=== PATIENT | female | born 1935 | race Caucasian/White ===

== ENCOUNTER → 2017-02-06 | Outpatient (CLI) | payer OTHER, MEDICARE ==
[~2017-02-06] MED LIST: ACET-1256 PO; ASPI81TA28 PO; ATOR-24 PO; AZITTAB PO; B-CO1CAP17 PO; CYAN500S5 PO; GABA1CAP5 PO; IPRASOL4 INH; LPR25 PO; PRLSR20 PO; PSEU60TA80 PO
== END | disposition home or self-care (01) ==
LOC: C.LABSPEC 15:27
PROVIDERS: ATTEND Podiatrist
DX: Z01.89 Encounter for other specified special examinations (principal)

== ENCOUNTER → 2017-05-08 | Outpatient (CLI) | payer OTHER, MEDICARE ==
--- NOTE | 2017-05-09 07:41 | MAMMOGRAPHY REPORT ---
BILATERAL DIGITAL SCREENING MAMMOGRAM WITH CAD: 05/08/2017 CLINICAL HISTORY: Routine screening. Patient has no complaints. TECHNIQUE: Bilateral CC, MLO, repeat left CC and left XCCL views were obtained. Current study was al so evaluated with a Computer Aided Detection (CAD) system. COMPARISON: Comparison is made to exams dated: 04/26/2016 mammogram, 04/23/2015 mammogram, 04/22/2014 mamm ogram - [facility], 08/14/2012 mammogram, 08/11/2011 mammogram, and 08/09/2010 mamm ogram. BREAST COMPOSITION: The tissue of both breasts is heterogeneously dense, which may obscure small mas ses. FINDINGS: There are stable postsurgical changes the left breast. There are scattered bilateral benig n rim calcifications The parenchymal pattern is similar to prior mammograms. No developing mass, arc hitectural distortion or cluster of suspicious microcalcifications is seen in either breast. IMPRESSION: ACR BI-RADS CATEGORY 2: BENIGN There is no mammographic evidence of malignancy. A 1 year screening mammogram is recommended. The pa tient will receive written notification of the results. Approximately 10% of breast cancers are not detected with mammography. A negative mammographic report should not delay biopsy if a clinically suggestive mass is present. Aviva Ratliff M.D. ay/:05/08/2017 15:59:31 [employer] Advisor: Sara ALFONSO(Alee)(Umberto)([place]), [facility] letter sent: Normal 1/2 BI-RADS Code: ACR BI-RADS Category 2: Benign
== END | disposition home or self-care (01) ==
LOC: C.MAMM 08:36
PROVIDERS: ATTEND Internal Medicine
DX: Z12.31 Encounter for screening mammogram for malignant neoplasm of breast (principal); Z85.3 Personal history of malignant neoplasm of breast

== ENCOUNTER 2017-05-26 11:05 | Emergency (ER) | payer OTHER, MEDICARE ==
[~2017-05-26] VITALS: Ht 167.6 cm; Wt 74.0 kg
[~2017-05-26 11:05] MED LIST changes: -AZITTAB PO; -CYAN500S5 PO; -IPRASOL4 INH; -PSEU60TA80 PO
[2017-05-26 11:11] VITALS: TEMP 38.2; Ht 167.6 cm; Wt 74.0 kg
[2017-05-26] MEDS ORDERED: CYAN500S5 PO (11:20)
[2017-05-26] MEDS ORDERED: IPRASOL4 INH (11:20)
[2017-05-26] MEDS ORDERED: PSEU60TA80 PO (11:21)
[2017-05-26 11:30] VITALS: O2SAT 99
[2017-05-26 11:59] LABS: POINT OF CARE TROPONIN I < 0.030 ng/ml (0-0.045)
[2017-05-26 12:02] LABS: HEMATOCRIT 38.7 % (37-47); MEAN CELL VOLUME 85.4 fL (80-100); MEAN CORPUSCULAR HEMOGLOBIN 28.7 pg (25-34); MEAN CORPUSCULAR HGB CONC 33.6 g/dl (32-36); MEAN PLATELET VOLUME 11.3 fL (7.4-10.4); PLATELET COUNT 185 K/uL (130-400); RED BLOOD COUNT 4.53 M/uL (4.2-5.4); WHITE BLOOD COUNT 5.22 K/uL (4.8-10.8)
--- NOTE | 2017-05-26 12:12 | DIAGNOSTIC IMAGING REPORT ---
CHEST ONE VIEW PORTABLE CLINICAL HISTORY: chest pain dyspnea COMPARISON STUDY: 10/21/2015 FINDINGS: Prior median sternotomy. No evidence for cardiac enlargement. Diaphragms smooth. Lungs are clear. IMPRESSION: No acute process The above report was generated using voice recognition software. It may contain grammatical, syntax or spelling errors. Electronically signed by: Antonio Ribeiro M.D. 05/26/2017 12:11 PM Dictated Date/Time: 05/26/2017 12:10 PM
[2017-05-26 12:13] LABS: PROTHROMBIN TIME (PATIENT) 10.5 SECONDS (9.0-12.0)
[2017-05-26 12:21] LABS: BUN/CREATININE RATIO 18.4 (10-20); CALCIUM 9.4 mg/dl (8.5-10.1); CREATININE 1.4 mg/dl (0.60-1.20); POTASSIUM 4.4 mmol/L (3.5-5.1)
[2017-05-26] MEDS ORDERED: AZITHROMYCIN 250 MG TAB PO STA (12:21)
[2017-05-26 12:25] LABS: ALB/GLOB RATIO 1.2 (0.9-2); CKMB/CK RATIO 1.3 (0-3.0)
[2017-05-26] MEDS ORDERED: AZITTAB PO (12:30)
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
[2017-05-26 12:33] VITALS: BP 129/68; PULSE 57; O2SAT 96
== END 2017-05-26 12:43 | disposition home or self-care (01) ==
LOC: C.EDB 11:06 → C.EDC 12:43
DX: J40 Bronchitis, not specified as acute or chronic (principal); R09.1 Pleurisy; I48.91 Unspecified atrial fibrillation; I35.0 Nonrheumatic aortic (valve) stenosis; Z85.3 Personal history of malignant neoplasm of breast; Z79.82 Long term (current) use of aspirin; Z79.899 Other long term (current) drug therapy; Z88.1 Allergy status to other antibiotic agents; Z80.9 Family history of malignant neoplasm, unspecified; Z82.3 Family history of stroke

== ENCOUNTER → 2017-06-16 | Outpatient (CLI) | payer OTHER, MEDICARE ==
[~2017-06-16] MED LIST changes: -ACET-1256 PO; -B-CO1CAP17 PO; +CYAN500S5 PO; +IPRASOL4 INH; +PSEU60TA80 PO
[2017-06-16 13:18] LABS: BASO % 0.3 %; BASO ABS # 0.02 K/uL (0-0.2); COMPLETE YES; EOS % 4.6 %; HEMATOCRIT 39.9 % (37-47); IG% 0.5 %; LYMPH % 28.1 %; LYMPH ABS # 1.77 K/uL (1.2-3.4); MEAN CELL VOLUME 86.4 fL (80-100); MEAN CORPUSCULAR HEMOGLOBIN 28.4 pg (25-34); MEAN CORPUSCULAR HGB CONC 32.8 g/dl (32-36); MEAN PLATELET VOLUME 11.1 fL (7.4-10.4); MONO % 9.7 %; NEUT % 56.8 %; PLATELET COUNT 195 K/uL (130-400); RED BLOOD COUNT 4.62 M/uL (4.2-5.4); WHITE BLOOD COUNT 6.29 K/uL (4.8-10.8)
[2017-06-16 14:18] LABS: LYME DISEASE AB IGG NEG (NEG); LYME DISEASE AB IGM NEG (NEG)
== END | disposition home or self-care (01) ==
LOC: C.LAB1850 11:53
PROVIDERS: ATTEND Dermatology
DX: M19.90 Unspecified osteoarthritis, unspecified site (principal); R53.83 Other fatigue

== ENCOUNTER → 2017-07-05 | Outpatient (CLI) | payer OTHER, MEDICARE ==
--- NOTE | 2017-07-05 11:36 | DIAGNOSTIC IMAGING REPORT ---
EXAMINATION: RENAL ULTRASOUND CLINICAL HISTORY: Acute renal failure COMPARISON STUDY: 08/22/2013 FINDINGS: The right kidney measures 9.4 cm. The left kidney measures 9.1 cm. There is no evidence of hydronephrosis. There are no renal masses. No bladder masses are visualized. The left ureteral jet was not visualized. IMPRESSION : No renal masses identified. No evidence of hydronephrosis. Symmetric renal size and cortical thickness. Electronically signed by: Ryan Bauer M.D. 07/05/2017 11:34 AM Dictated Date/Time: 07/05/2017 11:33 AM
[2017-07-05 11:56] LABS: HEMATOCRIT 40.3 % (37-47); MEAN CELL VOLUME 87.6 fL (80-100); MEAN CORPUSCULAR HEMOGLOBIN 28.5 pg (25-34); MEAN CORPUSCULAR HGB CONC 32.5 g/dl (32-36); MEAN PLATELET VOLUME 10.9 fL (7.4-10.4); PLATELET COUNT 236 K/uL (130-400); WHITE BLOOD COUNT 4.41 K/uL (4.8-10.8)
[2017-07-05 11:59] LABS: BLOOD UREA NITROGEN 20 mg/dl (7-18); BUN/CREATININE RATIO 16.7 (10-20); CALCIUM 9.9 mg/dl (8.5-10.1); CARBON DIOXIDE 27 mmol/L (21-32); CHLORIDE 108 mmol/L (98-107); GLUCOSE 89 mg/dl (70-99); POTASSIUM 4.3 mmol/L (3.5-5.1); SODIUM 140 mmol/L (136-145)
[2017-07-05 12:00] LABS: PHOSPHORUS 3.9 mg/dl (2.5-4.9)
== END | disposition home or self-care (01) ==
LOC: C.ULTR 10:41
PROVIDERS: ATTEND Internal Medicine
DX: N17.9 Acute kidney failure, unspecified (principal); N18.3 Chronic kidney disease, stage 3 (moderate)

== ENCOUNTER → 2017-09-12 | Outpatient (CLI) | payer OTHER, MEDICARE ==
--- NOTE | 2017-09-12 12:51 | DIAGNOSTIC IMAGING REPORT ---
CHEST 2 VIEWS ROUTINE CLINICAL HISTORY: COUGH SHORTNESS OF BREATH. WHEEZING. COMPARISON STUDY: 05/26/2017 FINDINGS: The cardiac and mediastinal contours remain stable. There are postsurgical changes of midline sternotomy. There are surgical clips in the left axillary region. There is no failure. There is no focal pulmonary consolidation. There are no pleural effusions. There are postsurgical changes of aortic valve replacement. There is mild interstitial thickening similar to the preceding study.[ IMPRESSION: No active disease in the chest. Electronically signed by: Ryan Bauer M.D. 09/12/2017 12:50 PM Dictated Date/Time: 09/12/2017 12:49 PM
== END | disposition home or self-care (01) ==
LOC: C.RAD 12:19
PROVIDERS: ATTEND Internal Medicine
DX: R05 Cough (principal)

== ENCOUNTER → 2017-12-04 | Outpatient (CLI) | payer OTHER, MEDICARE ==
[~2017-12-04] MED LIST changes: +GABA-1220 PO; -GABA1CAP5 PO
--- NOTE | 2017-12-04 13:55 | DIAGNOSTIC IMAGING REPORT ---
CHEST 2 VIEWS ROUTINE HISTORY: COUGH COMPARISON: Chest 09/12/2017. FINDINGS: Mild emphysema. Mild interstitial thickening at the lung bases which remains unchanged. No new focal lung consolidations to suggest pneumonia. The heart is stable in size. There are post sternotomy changes. Surgical clips within the left axilla. No pneumothorax. No pleural effusions. There is an aortic valve prosthesis. IMPRESSION: No significant change compared to the prior study. No acute process. Electronically signed by: Jose Maria Lim M.D. 12/04/2017 1:54 PM Dictated Date/Time: 12/04/2017 1:53 PM
== END | disposition home or self-care (01) ==
LOC: C.RAD 12:13
PROVIDERS: ATTEND Internal Medicine
DX: R05 Cough (principal)

== ENCOUNTER → 2017-12-11 | Outpatient (CLI) | payer OTHER, MEDICARE | END | disposition home or self-care (01) | LOC: C.LAB1850 08:45 | PROVIDERS: ATTEND Internal Medicine Cardiovascular Disease | DX: E78.5 Hyperlipidemia, unspecified (principal) ==

== ENCOUNTER → 2017-12-12 | Outpatient (CLI) | payer OTHER, MEDICARE ==
[2017-12-12 12:01] LABS: BASO % 0.1 %; BASO ABS # 0.01 K/uL (0-0.2); EOS % 0.3 %; EOS ABS # 0.03 K/uL (0-0.5); HEMATOCRIT 39.3 % (37-47); HEMOGLOBIN 13.5 g/dL (12.0-16.0); LYMPH % 14.9 %; LYMPH ABS # 1.28 K/uL (1.2-3.4); MEAN CELL VOLUME 85.6 fL (80-100); MEAN CORPUSCULAR HEMOGLOBIN 29.4 pg (25-34); MEAN CORPUSCULAR HGB CONC 34.4 g/dl (32-36); MEAN PLATELET VOLUME 10.7 fL (7.4-10.4); MONO % 7.1 %; MONO ABS # 0.61 K/uL (0.11-0.59); NEUT % 76.4 %; NEUT ABS # 6.55 K/uL (1.4-6.5); PLATELET COUNT 314 K/uL (130-400); RED CELL DISTRIBUTION WIDTH CV 14.2 % (11.5-14.5); WHITE BLOOD COUNT 8.58 K/uL (4.8-10.8)
[2017-12-12 12:07] LABS: INR 0.9 (0.9-1.1); PTT PATIENT 22.1 SECONDS (21.0-31.0)
[2017-12-12 12:24] LABS: BLOOD UREA NITROGEN 22 mg/dl (7-18); CALCIUM 9.8 mg/dl (8.5-10.1); CARBON DIOXIDE 24 mmol/L (21-32); CREATININE 1.18 mg/dl (0.60-1.20); GLUCOSE 96 mg/dl (70-99); SODIUM 139 mmol/L (136-145)
== END | disposition home or self-care (01) ==
LOC: C.LAB1850 10:34
PROVIDERS: ATTEND Physician Assistant
DX: R05 Cough (principal)

== ENCOUNTER → 2017-12-18 | Day surgery (SDC) | payer OTHER, MEDICARE ==
[~2017-12-18] VITALS: Ht 167.6 cm; Wt 69.0 kg
[~2017-12-18] MED LIST changes: +FENTANYL CITRATE INJ 50 MCG/1 ML 2 ML VIAL IV ONE; +LIDOCAINE 4% INH SOLN 4 ML BTL TOP ONE; +LIDOCAINE HCL 2% LOCAL 50ML VIAL INSTIL ONE; +LIDOCAINE VISCOUS 2% 100ML TOP ONE; +MIDAZOLAM HCL 5 MG/ML 1 ML VIAL IV ONE
--- NOTE | 2017-12-18 05:20 | History and Physical ---
History & Physical Date of Service Dec 18, 2017. History & Physical 82-year-old female presents today for bronchoscopic evaluation chronic productive cough: Prior records were reviewed. PMHx includes: Aortic stenosis s/p bioprosthetic valve (2012), paroxysmal atrial fibrillation following surgery, reflux esophagitis, hyperlipidemia, osteoarthritis, splenic artery aneurysm, mild persistent asthma, migraine headache, lung nodules (stable [id number]), peripheral neuropathy, and breast cancer (s/p XRT). She is a life-long non- smoker with h/o second hand exposure. Patient history notable for several decades of chronic dry cough without dyspnea or wheeze. She has been quite active and fit throughout her adulthood. 10/21/2015-10/24/2015 she was hospitalized with bronchitis and acute renal failure. CT Chest: multiple pulmonary nodules (stable from 2012) and bronchiectasis. She was initially seen 12/2015. Bronchoscopy 02/12/2016: + adherent secretions on the right mainstem, muco-viscous/muco-purulent secretions and numerous mucous plugging and impaction bilaterally. Cultures: normal palmer, negative fungal and AFB. Cytology from irregular mucosa: benign. She did very well post-procedure with improved energy. Second bronchoscopy completed 08/2016 for recurrent symptoms again notable for lavage of significant muco-purulent thick secretions with post-procedural improvement. In general the patient has been doing her very well until the fall of 2016 when she developed symptoms of pharyngitis. She was seen by her primary care physician and told her uvula was enlarged. She was prescribed an antibiotic ( unknown) at that time with significant post treatment symptomatic improvement. Unfortunately associated cough returned at which time she was treated with multiple courses of prednisone. Cough is described as wet in nature associated with chest congestion and mild shortness of breath without wheeze or chest pain. She was prescribed multiple rounds of prednisone each with temporary palliation in her symptoms. Unfortunately, cough returned at which point approximately 2 weeks ago she was prescribed azithromycin without improvement. She reports CXR completed - told this was negative. Prednisone re-started currently on day 9. Active Problems 1. Allergic asthma, mild persistent, uncomplicated 2. Breast cancer status post XRT 3. Aortic stenosis 4. Arthritis 5. hypertension 6. Bradycardia 7. Breast cancer 8. Bronchiectasis 9. Paroxysmal atrial fibrillation status post by prosthetic aortic valve replacement 2012 10. Cholecystitis 11. Conductive hearing loss 12. Constipation 13. Diverticulosis 14. Dizziness 15. Dysfunction of right eustachian tube 16. Esophageal reflux 17. Gross hematuria 18. Heart disease 19. Heartburn 20. Hypercalcemia 21. Hyperlipidemia 22. Idiopathic neuropathy 23. Lung anomaly 24. Migraine headache 25. Osteoarthritis 26. Peripheral neuropathy 27. Postmenopausal atrophic vaginitis 28. Rotator cuff tendonitis 29. Spinal stenosis 30. Status post aortic valve replacement with bioprosthetic valve 31. History of nephrolithiasis Surgical History 1. History of Biopsy Breast Open 2. History of Cholecystectomy Laparoscopic 3. Biopsy prosthetic aortic valve replacement Family History 1. No pertinent family history Social History Denied: History of Being A Social Drinker Marital History - Currently Never smoker Occupation: Retired Current Meds 1. Sterile Saline Solution; USE ONE 3ML VIAL OF 0.9% SALINE VIA NEBULIZER 1-2 x daily 2. PredniSONE 10 MG Oral Tablet; 4 tablets daily for 2 days, 3 tablets daily for 2 days, 2 3. Fluticasone Propionate 50 MCG/ACT Nasal Suspension; INSTILL 1 SQUIRT Twice daily 4. Omeprazole 20 MG Oral Capsule Delayed Release; TAKE 1 CAPSULE DAILY 5. Gabapentin 400 MG Oral Capsule; TAKE 1 CAPSULE 4 TIMES DAILY 6. Metoprolol Succinate ER 25 MG Oral Tablet Extended Release 24 Hour; TAKE 1/2 7. Aspirin 81 MG TABS; TAKE 1 TABLET DAILY 8. Atorvastatin Calcium 40 MG Oral Tablet; TAKE 1 TABLET DAILY; 9. DuoNeb 0.5-2.5 (3) MG/3ML SOLN; USE 1 UNIT DOSE IN NEBULIZER EVERY 4 HOURS PRN 10. Fish Oil 500 MG Oral Capsule; 11. Vitamin B Complex CAPS; 12. Vitamin D TABS; Allergies 1. Amoxicillin TABS 2. Augmentin TABS 3. Iodine Tincture SWAB 4. Shellfish Immunizations Influenza --- Series1: 28-Aug-2015; Series2: 18-Aug-2016 PCV --- Series1: 24-Jun-2015 Td/DT --- Series1: 02-Apr-2013 Vitals Vital Signs Recorded: [id number] 09:25AM Height: 5 ft 6 in Weight: 156 lb 4 oz BMI Calculated: 25.22 BSA Calculated: 1.8 Blood Pressure: 106 / 70, RUE, Sitting Respiration: 20 O2 Saturation: 99, RA Heart Rate: 78 Temperature: 98.3 F Constitutional: Well developed, well nourished elderly female. No acute distress. Head: + facial symmetry. Eyes: EOMi, PERRLA, no conjunctival injection. Corrective lenses Mouth: No erythema, exudate, or post nasal gtt Neck: Trachea midline. No adenopathy or masses Respiratory: Non-labored respirations. Intermittent harsh cough on exam. Scattered mobile rales. No wheeze or rhonchi. No clubbing or cyanosis. Cardiovascular: RRR, soft early systolic murmur. +2 radial pulses. <1s capillary refill. Integumentary: no rashes, or ecchymosis MSK/Extremities: Moving and developed symmetrically. No peripheral edema Neurologic: A&O, data recall in-tact. Appropriate affect
[2017-12-18 06:56] VITALS: BP 134/67; PULSE 59; TEMP 36.6; O2SAT 98; Ht 167.6 cm; Wt 69.0 kg
--- NOTE | 2017-12-18 08:06 | History & Physical Bridge Note ---
H&P Re-Evaluation Bridge Note: I have examined the patient, reviewed the History & Physical and in the interval since the performance of the History & Physical I have noted the following changes of clinical significance: No changes noted
--- NOTE | 2017-12-18 08:07 | Pre Sedation Assessment ---
Pre Sedation Assessment General Date of Sedation: Dec 18, 2017. Vital Signs Past 12 Hours Date Time Temp Pulse Resp B/P (MAP) Pulse Ox O2 Delivery O2 Flow Rate FiO2 12/18/17 06:56 36.6 59 18 134/67 (89) 98 Room Air Review Cardiovascular: regular rate, rhythm, no edema, no gallop, no JVD, no murmur, normal peripheral pulses Lungs: chest non-tender, + rhonchi Pre-Sedation Airway Assessment Smoking Status: Never Smoker Hx of Sleep Apnea: Yes Hx of difficult intubation: No Short Thick Neck: No Thyro-mental Distance: > 3 Finger Breadths Oral Cavity: WNL Mallampati Classification: Class II ASA Classification: Class II NPO Status Date of Last Intake of Fluids: Dec 17, 2017 Time of Last Intake of Fluids: 2229 Date of Last Intake of Solids: Dec 17, 2017 Time of Last Intake of Solids: 1900 Procedure Planning Contraindications for Sedation: None Current Medications Reviewed: Yes Notes The planned sedation has been discussed with the patient. Informed Consent was obtained. I have identified the patient, determined the appropriateness of sedation and have assessed the patient immediately prior to the procedure. All medicine(s) and interventions are by my order.
--- NOTE | 2017-12-18 08:54 | Bronchoscopy Procedure Note ---
Bronchoscopy Procedure Note Procedure: Bronchoscopy, conscious sedation, bronchial lavage right lower lobe Consent: Obtained through the patient placed into the chart Pre-procedural diagnosis: Chronic cough Post-procedural diagnosis: Chronic cough Start time: 835 End time: 846 Total time: 11 minutes Analgesia: 2% liquid lidocaine: Via nebulizer 4% gel lidocaine: Via right naris 2% liquid lidocaine: Via bronchoscopy Sedation: Versed IV: 2 mg Fentanyl IV: 50 g Procedure: The Olympus video bronchoscope was used for this procedure and passed down through the right naris Right naris/posterior naris/posterior oropharynx: Minimal nasal crepitus appreciated along the nasal septum Glottis: Anatomically within normal limits, minimal mucous plugs Vocal cords: Proper abduction and abduction, anatomically within normal limits Subglottis/trachea/Yasemin: Anatomically within normal limits Right bronchial tree: Right mainstem bronchus: Anatomically within normal limits Right upper lobe: Anatomically within normal limits Bronchus intermedius: Anatomically within normal limits Right middle lobe: Anatomically within normal limits Right lower lobe: Anatomically within normal limits Findings: Minimal mucus secretions in the right lower lobe Left bronchial tree: Left mainstem bronchus: Anatomically within normal limits Left upper lobe: Anatomically within normal limits Lingula: Anatomically within normal limits Left lower lobe: Anatomically within normal limits Findings: Minimal mucus secretions in the left lower lobe Bronchial alveolar lavage: Right lower lobe EBL: None Complications: None Follow-up: ASU
--- NOTE | 2017-12-18 08:56 | Discharge Instructions ---
Discharge Instructions Date of Service Dec 18, 2017. Admission Reason for Admission: Bronchiectasis, Chronic Bronchitis Discharge Discharge Diagnosis / Problem: Chronic cough Discharge Goals Goal(s): Improve function, Diagnostic testing Activity Recommendations Activity Limitations: resume your previous activity Lifting Limitations: none Exercise/Sports Limitations: rest today Shower/Bathe: no limitations Driving or Machine Use: resume 1 day after discharge . Instructions / Follow-Up Instructions / Follow-Up Follow[facility]up in the [facility] with provider Rosalee Almaguer Current Hospital Diet Patient's current hospital diet: Discharge Diet Recommended Diet: Regular Diet Procedures Procedures Performed: Bronchoscopy, conscious sedation and bronchial lavage of the right lower lobe Pending Studies Studies pending at discharge: no Laboratory Results Lipid Panel Test 12/11/17 08:48 Range/Units Triglycerides Level 169 H 0-150 mg/dl Cholesterol Level 165 0-200 mg/dl HDL Cholesterol 71 mg/dl Cholesterol/HDL Ratio 2.3 LDL Cholesterol, Calculated 60 mg/dl Medical Emergencies . Who to Call and When: Medical Emergencies: If at any time you feel your situation is an emergency, please call 911 immediately. . Non-Emergent Contact Non-Emergency issues call your: Painter Supervisor Call Non-Emergent contact if: you have a fever, temperature is above 101 . . "Provider Documentation" section prepared by Garett Dorado. . VTE Core Measure Inpt VTE Proph given/why not?: Treatment not indicated
[2017-12-18 09:05] VITALS: BP 134/67; PULSE 54; TEMP 36.7; O2SAT 99
[2017-12-18 09:35] VITALS: BP 104/55; PULSE 52; TEMP 36.4; O2SAT 99
[2017-12-18 10:03] VITALS: BP 124/51; PULSE 54; TEMP 36.7; O2SAT 99
[2017-12-18 10:34] VITALS: BP 123/57; PULSE 52; O2SAT 98
[2017-12-18 11:05] VITALS: BP 126/62; PULSE 67; O2SAT 98
== END | disposition home or self-care (01) ==
LOC: C.ACU 06:29
PROVIDERS: ATTEND Internal Medicine Critical Care Medicine
DX: R05 Cough (principal); I35.0 Nonrheumatic aortic (valve) stenosis; I48.0 Paroxysmal atrial fibrillation; K21.0 Gastro-esophageal reflux disease with esophagitis; E78.5 Hyperlipidemia, unspecified; M19.90 Unspecified osteoarthritis, unspecified site; J45.909 Unspecified asthma, uncomplicated; F17.200 Nicotine dependence, unspecified, uncomplicated; Z85.3 Personal history of malignant neoplasm of breast; I10 Essential (primary) hypertension; H90.8 Mixed conductive and sensorineural hearing loss, unspecified; I51.9 Heart disease, unspecified; Z98.890 Other specified postprocedural states; Z79.82 Long term (current) use of aspirin; Z79.899 Other long term (current) drug therapy; Z88.1 Allergy status to other antibiotic agents; Z88.8 Allergy status to other drugs, medicaments and biological substances; Z91.013 Allergy to seafood

== ENCOUNTER → 2018-05-10 | Outpatient (CLI) | payer OTHER, MEDICARE ==
[~2018-05-10] MED LIST changes: -FENTANYL CITRATE INJ 50 MCG/1 ML 2 ML VIAL IV ONE; +IPRA-64 INH; -IPRASOL4 INH; -LIDOCAINE 4% INH SOLN 4 ML BTL TOP ONE; -LIDOCAINE HCL 2% LOCAL 50ML VIAL INSTIL ONE; -LIDOCAINE VISCOUS 2% 100ML TOP ONE; -MIDAZOLAM HCL 5 MG/ML 1 ML VIAL IV ONE
--- NOTE | 2018-05-10 16:06 | MAMMOGRAPHY REPORT ---
BILATERAL DIGITAL SCREENING MAMMOGRAM TOMOSYNTHESIS WITH CAD: 05/10/2018 CLINICAL HISTORY: Routine screening. Patient has no complaints. TECHNIQUE: The study was acquired using full field digital technology and interpreted from soft copy. Breast tomosynthesis in addition to standard 2D mammography was performed. Current study was also ev aluated with a Computer Aided Detection (CAD) system. COMPARISON: Comparison is made to exams dated: 05/08/2017 mammogram, 04/26/2016 mammogram, 04/23/2015 steve mogram, 04/22/2014 mammogram - [facility], 08/14/2012 mammogram, and 08/11/2011 mammo gram. BREAST COMPOSITION: The tissue of both breasts is heterogeneously dense, which may obscure small mass es. FINDINGS: No suspicious masses, calcifications, or areas of architectural distortion are noted in either breast . There has been no significant interval change compared to prior exams. There are stable postsurgic al changes in the left 12:00 posterior breast and left axillary region. Scattered bilateral benign-a ppearing calcifications are stable. IMPRESSION: There is no mammographic evidence of malignancy. A 1 year screening mammogram is recommended.( 019) The patient will receive written notification of the results. Some breast cancers are not detected with mammography. A negative mammographic report should not genny y biopsy if a clinically suggestive mass is present. Fidelia Hoover M.D. ah/:05/10/2018 15:06:44 Loading Machine Tool Setter: Amber Stewart, RT(R)(M), [facility] letter sent: Normal 1/2 BI-RADS Code: ACR BI-RADS Category 2: Benign
== END | disposition home or self-care (01) ==
LOC: C.MAMM 08:37
PROVIDERS: ATTEND Internal Medicine
DX: Z12.31 Encounter for screening mammogram for malignant neoplasm of breast (principal)

== ENCOUNTER 2023-12-07 09:41 | Observation (INO) ==
--- NOTE | 2023-11-08 12:32 | PAT Medication Instructions ---
Medication Instructions Date of Service November 08, 2023 Home Medications Medication Instructions Recorded duloxetine 60 mg capsule,delayed 60 mg PO HS 90 days #90 caps 01/02/23 release metoprolol succinate 25 mg 12.5 mg (1/2 x 25 mg) PO QAM #90 10/24/23 tablet,extended release 24 hr tabs atorvastatin 40 mg tablet 40 mg PO QAM cyanocobalamin (vitamin B-12) 500 mcg tablet (Vitamin B-12) 500 mcg PO QAM aspirin 81 mg tablet,delayed release 81 mg PO QPM cholecalciferol (vitamin D3) 25 mcg (1,000 unit) capsule 1,000 units PO QAM omega-3 fatty acids 500 mg capsule 1,200 mg PO QAM gabapentin 400 mg capsule 800 mg PO BID magnesium oxide 500 mg capsule 500 mg PO QAM omeprazole 20 mg capsule,delayed release 20 mg PO QAM duloxetine 60 mg capsule,delayed release 60 mg PO HS metoprolol succinate 25 mg tablet,extended release 24 hr 12.5 mg (1/2 x 25 mg) PO QAM cetirizine 10 mg tablet (Zyrtec) 10 mg PO QPM meloxicam 7.5 mg tablet 7.5 mg PO QAM montelukast 10 mg tablet (Singulair) 10 mg PO QPM vitamins A,C,U-gvrv-bgnccb 2,148 mcg-113 mg-45 mg-17.4 mg tablet (Eye Multivitamin) 1 tab PO QAM ASK your surgeon for instructions meloxicam 7.5 mg tablet 7.5 mg PO QAM ASK your prescriber and surgeon aspirin 81 mg tablet,delayed release 81 mg PO QPM STOP taking 2 weeks before surgery (or as soon as possible if surgery is within 2 weeks) omega-3 fatty acids 500 mg capsule 1,200 mg PO QAM vitamins A,C,F-miut-yprbcx 2,148 mcg-113 mg-45 mg-17.4 mg tablet (Eye Multivitamin) 1 tab PO QAM DO NOT take the morning of surgery cyanocobalamin (vitamin B-12) 500 mcg tablet (Vitamin B-12) 500 mcg PO QAM cholecalciferol (vitamin D3) 25 mcg (1,000 unit) capsule 1,000 units PO QAM magnesium oxide 500 mg capsule 500 mg PO QAM Take morning of surgery With a small sip of water, OTHERWISE NOTHING TO EAT OR DRINK AFTER MIDNIGHT: atorvastatin 40 mg tablet 40 mg PO QAM gabapentin 400 mg capsule 800 mg PO BID omeprazole 20 mg capsule,delayed release 20 mg PO QAM metoprolol succinate 25 mg tablet,extended release 24 hr 12.5 mg (1/2 x 25 mg) PO QAM Take evening before surgery gabapentin 400 mg capsule 800 mg PO BID duloxetine 60 mg capsule,delayed release 60 mg PO HS cetirizine 10 mg tablet (Zyrtec) 10 mg PO QPM montelukast 10 mg tablet (Singulair) 10 mg PO QPM Other Notes If you have any questions please call us at [phone] or [phone] or [phone] or [phone]
--- NOTE | 2023-11-14 15:54 | Anesthesiology Consultation ---
Date of Service November 14, 2023 Assessment & Plan (1) Encounter for pre-operative examination: - left arm restriction. - cardiology office visit 06/28/23 [place]: "...acceptable cardiac risk for hip replacement surgery without further testing...stable from cardiovascular standpoint. She demonstrates excellent control of her blood pressure and cholesterol values. She was commended on her exercise program. We will reassess her bioprosthetic aortic valve prior to our next visit..." - Outpatient joint assessment: Patient is currently scheduled for inpatient pathway. If re-evaluated and patient/surgeon requests outpatient pathway, patient is not recommended candidate for outpatient joint program from anesthesia standpoint. Chart Review Chart Review: Acceptable Risk for Surgery and Patient seen in Pre Admission Testing Teaching & Discussion Pre-Anesthesia Teaching/Discussion Notes: Instructed NPO after midnight before surgery, except medications with 15 cc of water. Medication instructions provided according to the PAT guidelines. History Surgery Operation Date: 12/07/23 07:00 Proposed Procedures p Right Total Hip Arthroplasty - Patrick Reyes MD Height/Weight Height: 5 ft 6 in Weight: 73.1 kg Allergies Allergy/AdvReac Type Severity Reaction Status Date / Time pregabalin [From Lyrica] AdvReac Severe hot flashes Verified 11/07/23 10:35 prednisone AdvReac Intermediate Worsening Verified 11/07/23 10:35 Neuropathy Medications Home Medications Medication Instructions Recorded Confirmed Last Taken atorvastatin 40 mg tablet 40 mg PO QAM #30 tabs 08/20/19 11/07/23 07/21/22 09:00 cyanocobalamin (vitamin B-12) 500 500 mcg PO QAM 03/08/20 11/07/23 07/21/22 09:00 mcg tablet (Vitamin B-12) aspirin 81 mg tablet,delayed 81 mg PO QPM 06/02/20 11/07/23 3 Weeks Ago release ~07/01/22 cholecalciferol (vitamin D3) 25 1,000 units PO QAM 06/02/20 11/07/23 07/21/22 09:00 mcg (1,000 unit) capsule omega-3 fatty acids 500 mg capsule 1,200 mg PO QAM 06/02/20 11/07/23 07/21/22 09:00 gabapentin 400 mg capsule 800 mg PO BID 05/04/21 11/07/23 07/22/22 05:30 magnesium oxide 500 mg capsule 500 mg PO QAM 12/17/21 11/07/23 07/21/22 09:00 omeprazole 20 mg capsule,delayed 20 mg PO QAM 10/31/22 11/07/23 Unknown release duloxetine 60 mg capsule,delayed 60 mg PO HS 90 days #90 caps 01/02/23 11/07/23 Unknown release metoprolol succinate 25 mg 12.5 mg (1/2 x 25 mg) PO QAM #90 10/24/23 11/07/23 Unknown tablet,extended release 24 hr tabs cetirizine 10 mg tablet (Zyrtec) 10 mg PO QPM 11/07/23 11/07/23 Unknown meloxicam 7.5 mg tablet 7.5 mg PO QAM 11/07/23 11/07/23 Unknown montelukast 10 mg tablet 10 mg PO QPM 11/07/23 11/07/23 Unknown (Singulair) vitamins A,C,S-awjb-ozzvhp 2,148 1 tab PO QAM 11/07/23 11/07/23 Unknown mcg-113 mg-45 mg-17.4 mg tablet (Eye Multivitamin) Past Medical History Medical History (Updated 11/15/23 @ 08:25 by Araceli Carreon PA-C) Aortic valvular disorder Bioprosthetic AVR, 2012 ([facility] [place]) Atrial fibrillation Post-op AVR (2012) [facility] Benign essential hypertension controlled, stable per pt Chronic bronchitis inhaler prn-pt and daughter deny that patient has rescue inhaler Chronic kidney disease (CKD) Baseline creatinine 1.3 per chart review Cough variant asthma pt denies needing rescue inhaler GERD without esophagitis controlled, stable per pt History of basal cell carcinoma right eyebrow s/p excision History of left breast cancer 2009, radiation and lumpectomy Hyperlipidemia Limb alert care status left arm restriction Multiple pulmonary nodules determined by computed tomography of lung Peripheral neuropathy feet and legs Patient denies h/o stroke, seizures, heart attack, heart failure, DM, blood clots/DVTs or blood transfusions. Exercise / Class Metabolic Activity III < 4 Walking/Shop/Light housework (denies chest discomfort or shortness of breath with usual activities) Past Family History Family History Father Lung cancer Other No family history of adverse response to anesthesia Past Surgical History Surgical History H/O endoscopic sinus surgery Image guided b/l ESS and septoplasty (07/22/2022): Grade view 1, Cameron#2, ETT 7.0 at [facility] History of anesthesia reaction "Slow to wake" Pt reports needing "the smallest dose possible"/has strong response to anesthesia History of arthroscopy of left knee History of arthroscopy of right knee History of basal cell carcinoma (BCC) excision History of section History of laparoscopic cholecystectomy History of left breast biopsy malignant History of left cataract extraction History of right cataract extraction History of shoulder surgery frozen shoulder-pt denies surgical intervention History of wisdom tooth extraction Hx of colonoscopy S/P breast lumpectomy left with lymph node biopsy Status post aortic valve replacement with bioprosthetic valve Bioprosthetic AVR, 2012 ([facility] [place]) Status post trigger finger release R/L hands Past Anesthesia History No Family Hx of Anesthesia Complications and Other ("needs minimal amount of anesthesia due to slowness waking up") History of PONV No Hx of PONV and Hx of Motion Sickness Social History Smoking Status: Never smoker Do You Dip or Chew Tobacco: No Hx Alcohol Use: Yes alcohol intake frequency: holidays/special occasions only Hx Substance Use: No substance use type: does not use Review of Systems Patient denies chest pain, shortness of breath, dyspnea on exertion, snoring, witnessed apneas, fever, chills, cough, wheezing, or palpitations. Physical Exam Vital Signs Vitals BP 91/51 automatic right arm reading; 92/52 manual right arm (pt states this is her usual BP range, denies dizziness/lightheadedness-states she feels fine to day) P 65 TEMP 98.1 SP02 95% on RA RESP 17 Physical Patient resting comfortably in chair in no acute distress, alert and oriented, responding appropriately throughout visit Full cervical extension range of motion without pain TMD 3.5 finger breadths Mallampati Score 2 Dentition: intact, denies chipped or loose teeth, caps/crowns, implants or bridges Lungs: normal respiratory effort. Good air movement, clear throughout to auscultation, no adventitious breath sounds Cardiac: regular rate and rhythm, no murmurs noted Carotid arteries: negative bruit bilat Lab Results Anesthesia Preop Results Results Anesthesia Widget: WBC 6.79 K/ul (4.8-10.8) 11/14/23 Hgb 12.7 g/dl (12.0-16.0) 11/14/23 Hct 39.3 % (37.0-47.0) 11/14/23 Plt 231 K/uL (130-400) 11/14/23 Na 138 mmol/L (136-145) 11/14/23 K 4.4 mmol/L (3.5-5.1) 11/14/23 Cl 103 mmol/L (98-107) 11/14/23 CO2 29 mmol/L (21-32) 11/14/23 BUN 24 mg/dl (6-23) H 11/14/23 Creat 1.29 mg/dl (0.6-1.2) H 11/14/23 Glucose Level 82 mg/dl (70-99(Fasting)) 11/14/23 PT 10.7 Seconds (9.0-12.0) 11/14/23 PTT 28 Seconds (21-31) 11/14/23 INR 1.0 (0.9-1.1) 11/14/23 Urine Color Yellow 11/14/23 Urine Appearance Clear (Clear) 11/14/23 Urine pH 6.5 (4.5-7.5) 11/14/23 Urine Specific [place] 1.013 (1.000-1.030) 11/14/23 Urine Protein Negative (Negative) 11/14/23 Urine Glucose (UA) Negative (Negative) 11/14/23 Urine Ketones Negative (Negative) 11/14/23 Urine Blood Negative (Negative) 11/14/23 Urine Nitrite Negative (Negative) 11/14/23 Urine Bilirubin Negative (Negative) 11/14/23 Urine Urobilinogen Negative (Negative) 11/14/23 Urine Leukocyte Esterase Trace (Negative) H 11/14/23 Urine WBC (Auto) 1-5 /hpf (0-5) 11/14/23 Urine RBC (Auto) 5-10 /hpf (0-4) H 11/14/23 Urine Hyaline Casts (Auto) 0 /lpf (0-5) 11/14/23 Urine Epithelial Cells (Auto) 0-5 /lpf (0-5) 11/14/23 Urine Bacteria (Auto) Negative (Negative) 11/14/23 Blood Type O Positive 11/14/23 Antibody Screen NEGATIVE 11/14/23 Testing Electrocardiogram Date: 11/14/23 Sinus rhythm with 1st degree AV block, rate 66 bpm Echocardiogram Date: 12/27/22 EF 55-60% Normal LV wall motion Mild cLVH Bioprosthetic aortic valve is well seated and functions normally; gradient is normal No significant valvular pathology Other Testing Chest CT 01/04/23 1. Stable subcentimeter pulmonary nodules. These are likely benign. 2. No new or suspicious pulmonary nodules identified. 3. Additional findings as described above.
--- NOTE | 2023-11-15 16:14 | History & Physical Report ---
Date of Service November 15, 2023 Assessment & Plan (1) Osteoarthritis of right hip: Plan: PRE-OP Diagnosis: Right hip osteoarthritis Planned Procedure: Right total hip arthroplasty Plan: Patient is scheduled to undergo this procedure at the [facility] with a 23-hour observation admission with Dr. Reyes on November. Risks and complications of the procedure such as: Infection, bleeding, pain, scarring, nerve blood vessel damage, weakness, wound problems, stiffness, incomplete relief of symptoms, hardware failure, hardware loosening, wear, fracture, tendon or ligament injury, dislocation, leg length inequality, blood clots, Embolism, heart attack, stroke and were explained to the patient at her visit today. Informed consent to perform the procedure was obtained. Patient also understands risks of proceeding with surgical intervention during the COVID-19 pandemic. Currently she is asymptomatic and has not been in contact with anyone positive for the virus recently. Patient has an appointment to meet with anesthesia later today and while there will obtain CBC with differential, complete metabolic panel, PT/INR, blood type and screen, urinalysis, urine culture and sensitivity, EKG, and a nasal culture for MRSA. Patient will also need preoperative medical clearance from their senior category manager and primary care provider. Patient states that she plans on doing in-home physical therapy for the first 1 to 2 weeks postoperatively with [facility]. Patient states that she will most likely elect to do outpatient physical therapy at our PT clinic with Pat. Patient will need a walker, raised toilet seat, shower chair and a hip kit. During today's visit we reviewed the total hip packet as well as precautions. We discussed discharge planning from the hospital. I provided paperwork to obtain a handicap placard for their vehicle. We discussed lectures offered by [facility] in regards to joint replacement surgery via Zoom. I advised the patient that upon discharge from hospital we will prescribe a narcotic pain medication and anti- inflammatory. Patient will also be on an 81 mg aspirin twice daily for blood clot prevention. Patient will be scheduled for 2-week postoperative follow-up visit with myself on December 20. At that visit we will Provide the patient with an order for outpatient physical therapy and rehab protocol. This chart was completed utilizing [employer] voice recognition software. Grammatical errors, random word insertions, pronoun errors, and in complete sentences are an occasional consequence of the system. Any questions or con cerns about the content, text, or information contained within the body of this dictation should be addressed directly to the physician for clarification. Plan PRE-OP Diagnosis: Right hip osteoarthritis Planned Procedure: Right total hip arthroplasty History of Present Illness Chief Complaint: Chief Complaint: Right hip pain Primary Care Provider: Baldomero Holder MD History of Present Illness (including history relevant to procedure): This 88-year-old female presents the clinic today for preoperative history and physical. Patient states she has been having significant right hip pain for the past 6 months but over the past month it has increased. She localizes most of her pain over the lateral aspect of her hip. She states that it seems to be worse in the morning when she wakes up or down steps. She has recently began using a cane as an assistive device. Patient has had ultrasound-guided corticosteroid injections with only mild pain relief. She was on Mobic and experienced significant relief initially but states it is ineffective now. She states that she does experience some episodes of the leg feeling very weak and giving out. She is electing to proceed with surgical invention at this time due to failed conservative management of her hip arthritis. Review Of Systems: A 12 point review of systems is performed and is unremarkable except for those things stated in the HPI and past medical history. Past Medical History: Problems: Arthritis of right hip Seborrheic keratoses Changing skin lesion History of basal cell carcinoma of skin Actinic keratoses Hiatal hernia Neuropathic pain Gastric reflux Cancer Heart burn Heart murmur Dry eyes . Breast cancer with radiation treatment High cholesterol Procedure History Procedure Procedure Date Comments Shave biopsy and cauterization of skin 11/02/2023 Gallbladder 2010 - removed Left Rotator Cuff Repair 2008 Colonoscopy 2006 Left Knee Surgery 2005 Right Knee Surgery 2005 Left Breast Lumpectomy 2003 Biopsy of breast Heart valve replacement 2002 2003 Allergies and Sensitivities: Adhesive bandage Current Home Meds: (Last Updated 11/14 16:15) DULoxetine (DULoxetine 20 mg oral delayed release capsule) 60mg acetaminophen (Tylenol 500 mg oral tablet) 2 tab PO q6h albuterol (Albuterol (Eqv-ProAir HFA) 90 mcg/inh inhalation aerosol) aspirin atorvastatin (atorvastatin 40 mg oral tablet) cyanocobalamin (Vitamin B12) diclofenac (diclofenac sodium 75 mg oral delayed release tablet) 75 mg PO bid PRN: as needed for pain with food gabapentin (gabapentin 400 mg oral capsule) 400 mg PO bid magnesium aspartate meloxicam metoprolol (metoprolol tartrate 25 mg oral tablet) 12.5 mg PO bid omega-3 polyunsaturated fatty acids (Fish Oil oral capsule) omeprazole (omeprazole 20 mg oral delayed release tablet) 20 mg PO Daily polyethylene glycol 3350 (MiraLax) pravastatin (pravastatin 20 mg oral tablet) 20 mg PO Daily senna 2 tab PO q24h thiamine (Vitamin B1) PO Daily Initial Wt: 11/14 72.4 kg 159 lb Allergies Allergy/AdvReac Type Severity Reaction Status Date / Time pregabalin [From Lyrica] AdvReac Severe hot flashes Verified 11/07/23 10:35 prednisone AdvReac Intermediate Worsening Verified 11/07/23 10:35 Neuropathy Home Medications Medication Instructions Recorded Confirmed Type atorvastatin 40 mg tablet 40 mg PO QAM #30 tabs 08/20/19 11/07/23 History cyanocobalamin (vitamin B-12) 500 500 mcg PO QAM 03/08/20 11/07/23 History mcg tablet (Vitamin B-12) aspirin 81 mg tablet,delayed 81 mg PO QPM 06/02/20 11/07/23 History release cholecalciferol (vitamin D3) 25 1,000 units PO QAM 06/02/20 11/07/23 History mcg (1,000 unit) capsule omega-3 fatty acids 500 mg capsule 1,200 mg PO QAM 06/02/20 11/07/23 History gabapentin 400 mg capsule 800 mg PO BID 05/04/21 11/07/23 History magnesium oxide 500 mg capsule 500 mg PO QAM 12/17/21 11/07/23 History omeprazole 20 mg capsule,delayed 20 mg PO QAM 10/31/22 11/07/23 History release duloxetine 60 mg capsule,delayed 60 mg PO HS 90 days #90 caps 01/02/23 11/07/23 Rx release metoprolol succinate 25 mg 12.5 mg (1/2 x 25 mg) PO QAM #90 10/24/23 11/07/23 Rx tablet,extended release 24 hr tabs cetirizine 10 mg tablet (Zyrtec) 10 mg PO QPM 11/07/23 11/07/23 History meloxicam 7.5 mg tablet 7.5 mg PO QAM 11/07/23 11/07/23 History montelukast 10 mg tablet 10 mg PO QPM 11/07/23 11/07/23 History (Singulair) vitamins A,C,N-avvr-yvlklz 2,148 1 tab PO QAM 11/07/23 11/07/23 History mcg-113 mg-45 mg-17.4 mg tablet (Eye Multivitamin) Past Med/Surg History Medical History Limb alert care status left arm restriction Cough variant asthma pt denies needing rescue inhaler Multiple pulmonary nodules determined by computed tomography of lung Chronic kidney disease (CKD) Baseline creatinine 1.3 per chart review History of basal cell carcinoma right eyebrow s/p excision History of left breast cancer 2009, radiation and lumpectomy Aortic valvular disorder [place] [place] Atrial fibrillation Post-op AVR (2012) Follows with [facility] cardio Benign essential hypertension controlled, stable per pt Chronic bronchitis inhaler prn-pt and daughter deny that patient has rescue inhaler GERD without esophagitis controlled, stable per pt Hyperlipidemia Peripheral neuropathy feet and legs Surgical History H/O endoscopic sinus surgery Image guided b/l ESS and septoplasty (07/22/2022): Grade view 1, Cameron#2, ETT 7.0 at [facility] Hx of colonoscopy History of anesthesia reaction "Slow to wake" Pt reports needing "the smallest dose possible"/has strong response to anesthesia Status post trigger finger release R/L hands History of left breast biopsy malignant History of arthroscopy of right knee History of arthroscopy of left knee History of section History of basal cell carcinoma (BCC) excision History of wisdom tooth extraction History of left cataract extraction History of right cataract extraction S/P breast lumpectomy left with lymph node biopsy History of shoulder surgery frozen shoulder-pt denies surgical intervention History of laparoscopic cholecystectomy Status post aortic valve replacement with bioprosthetic valve [place] [place] Family History Father Lung cancer Other No family history of adverse response to anesthesia Social History Smoking Status: Never smoker Second Hand Exposure: No; Do You Dip or Chew Tobacco: No; Hx Alcohol Use: Yes Hx Substance Use: No Preferred Language: Nauruan Communication Ability: Effective Histopathologist Required: No Beliefs That Will Affect Care: None Current Living Situation: Spouse current occupational status: retired Feels Safe at Home: Yes Assistive Devices: Glasses and Hearing Aid - Bilateral Review of Systems All systems reviewed & are unremarkable except as noted in Subjective Physical Exam Physical Exam: Physical Exam: (relevant to the procedure, including heart and lung evaluation) General: Alert and oriented x 3 with proper grooming and hygiene Eyes: Pupils are equal and reactive to light with accommodation. Extraocular movements are intact Throat: Posterior oropharynx is clear with absence of edema, erythema or exudate. Dentition is appropriate. Cardiac: Regular rate and rhythm with a grade 2/6 holosystolic murmur heard best in the lower left sternal border. Lungs: Clear to auscultation throughout with no wheezing, rales or rhonchi Abdomen: Nonobese, nondistended, nontender with NABS Extremities: Right hip: Flexion is to 110 degrees, external rotation to 45 degrees and internal rotation to 15 degrees. Straight leg raise test and Stinchfield test are both positive. Patient experiences tenderness to palpation in the groin area. Logroll test reproduce any pain. Patient is neurovascularly intact. Neuro: Cranial nerves II through XII are intact no motor or sensory deficit Skin: Normal in appearance with no open skin areas or discharge Results & Data Diagnostic Findings Studies (relevant to the procedure): AP pelvis, false profile, and crosstable lateralviews of theright hip which shows central pattern osteoarthritis
[~2023-12-07 09:41] MED LIST changes: -ASPI81TA28 PO; -ATOR-24 PO; -CYAN500S5 PO; -GABA-1220 PO; -IPRA-64 INH; -LPR25 PO; -PRLSR20 PO; -PSEU60TA80 PO; +ROPIVACAINE 0.5% 5 MG/ML 30 ML VIAL ONE
[2023-12-07] MEDS ORDERED: ATROPINE SULFATE 0.1 MG/ML 10ML SYR IV PRN (09:54)
[2023-12-07] MEDS ORDERED: ONDANSETRON INJ 2 MG/ML 2 ML VIAL IV PRN ×2 (09:54→14:05)
[2023-12-07] MEDS ORDERED: ePHEDrine sulfate 50 MG/ML AMP IV PRN (09:54)
[2023-12-07] MEDS ORDERED: HYDROmorphone INJ 2 MG/ML SYR/VIAL IV PRN (09:54)
[2023-12-07] MEDS ORDERED: fentaNYL citrate PF 100 MCG/2 ML VIAL IV PRN (09:54)
[2023-12-07] MEDS ORDERED: fentaNYL citrate PF 100 MCG/2 ML VIAL ONE ×2 (10:21→13:47)
[2023-12-07] MEDS ORDERED: MIDAZOLAM HCL 1 MG/ML 2ML VIAL ONE (10:21)
[2023-12-07] MEDS: ACETAMINOPHEN 500 MG TAB PO SCH ×2 (10:43→21:06)
[2023-12-07] MEDS: Scopolamine 1 MG TDSY TD SCH (10:44)
[2023-12-07] MEDS: traMADol HCL 50 MG TABLET PO SCH (10:44)
[2023-12-07] MEDS: dexAMETHasone**PF** 10 MG/ML VIAL IV SCH (10:44)
[2023-12-07] MEDS: CeleBREX 200 MG CAP PO SCH (10:44)
[2023-12-07] MEDS: FAMOTIDINE 20 MG TAB PO SCH (10:44)
[2023-12-07] MEDS: LR 500ML BOLUS, THEN 15ML/HR IV SCH (10:46)
[2023-12-07] MEDS: LR 60ML/HR IV SCH (10:46)
--- NOTE | 2023-12-07 10:48 | History & Physical Bridge Note ---
Date of Service December 07, 2023 History & Physical Bridge Note I have examined the patient, reviewed the History & Physical and in the interval since the performance of the History & Physical I have noted the following changes of clinical significance: no changes noted
[2023-12-07] MEDS: TRANEXAMIC ACID 1,000 MG **IV Pre-op IV SCH (11:16)
[2023-12-07] MEDS: ceFAZolin 2000MG 2,000 MG/15 ML SYR IV SCH ×2 (11:23→20:30)
[2023-12-07] MEDS ORDERED: ONDANSETRON INJ 2 MG/ML 2 ML VIAL ONE (11:44)
[2023-12-07] MEDS ORDERED: PROPOFOL IV EMULSION 10 MG/ML 100 ML VIAL IV ONE (11:44)
[2023-12-07] MEDS ORDERED: ePHEDrine sulfate 50 MG/5 ML SYR ONE (11:58)
[2023-12-07] MEDS: ROPIVACAINE 0.5% HCL/PF 246 MG, Ketorolac (*for OR use only*) 30 MG, EPINEPHrine 30MG/3... INFIL SCH (12:16)
[2023-12-07] MEDS: ORTHO JOINT ANESTHETIC ONE (12:16)
[2023-12-07] MEDS ORDERED: PHENYLEPHRINE HCL 10 MG/ML VIAL ONE (12:29)
[2023-12-07] MEDS: TRANEXAMIC ACID 1,000 MG **IV Intra-op IV SCH (12:33)
[2023-12-07] MEDS ORDERED: GLYCOPYRROLATE 0.2 MG/ML VIAL ONE (13:24)
--- NOTE | 2023-12-07 13:45 | Operative Report ---
Post Operative Report Pre & Post Diagnosis Operation Date: 12/07/23 11:20 Pre-Op Diagnosis: Right Hip Osteoarthritis Post-Op Diagnosis: Right Hip Osteoarthritis I identified the patient and participated in the time-out.: Yes Procedure Operation Date: 12/07/23 11:20 Actual Procedures p Right Total Hip Arthroplasty(Right) - Patrick Reyes MD Surgeon Patrick Reyes MD Engine Service Repairer Cassandra Cano MD and KAROLYN Almaguer PA-C. Estimated Blood Loss 150 Findings Consistent with Post-Op Diagnosis Specimens Right femoral head Anesthesia Type Spinal MAC Complications none Disposition Disposition: Recovery Room Indications 88-year-old female with right hip pain refractory to conservative management. This includes nonsteroidal anti-inflammatory medications and Tylenol, physical therapy, activity modifications, and an intra-articular corticosteroid injection which only gave for mild temporary relief. Physical exam was notable for positive impingement and scour tests. X-rays were obtained demonstrating central pattern osteoarthritis. I had a long discussion with her about the risks and benefits of surgery, alternatives to surgery, and expected outcomes. After reviewing all these she elected to proceed with surgery. All questions were answered. Informed consent was signed. Description of Procedure Patient was identified in the preoperative holding area where her cervix site was marked. She was given a spinal anesthetic and then brought back to the main operating room where she was placed on the operating room table in the lateral decubitus position. Axillary roll was placed. All bony prominences were padded. Perioperative antibiotics and tranexamic acid were administered. She was prepped and draped in usual sterile fashion. Prior to incision a multidisciplinary time was called. All in the room were in agreement. I began by making a 14 cm long incision for posterior approach for the hip. I dissected through subcutaneous tissues down to the fascia. Fascia was incised in line with the incision. Charnley bow was placed. Portions of the trochanteric bursa were excised. The quadratus femoris was reflected posteriorly off the posterior aspect of the greater trochanter. Gluteus minimus was lifted off the capsule Superiorly. Piriformis and short external rotators were dissected off the posterior trochanter and off the capsule and reflected posteriorly. A box cut was then made in the capsule and the femoral head was dislocated. Her neck cut was made at our preoperative template which was approximately 17 mm above the lesser troches. Femoral head was inspected and did have mild osteoarthritis. The acetabulum was then exposed. Patient had a degenerative labrum tear located anteriorly and superiorly. Labrum was then excised. Contents of cotyloid fossa were removed with electrocautery. We reamed up to a size 50 acetabular shell. The [place] GRIPTION shell 50 mm outer diameter was impacted into the acetabulum 25 degrees of anteversion and 40 degrees of lateral opening. 2 cancellous bone screws were placed into the ilium and ischium respectively. The metal liner for a dual mobility cup was then impacted after the acetabular shell been irrigated out and dried. The [place] taper was checked and it had completely engaged. Next we turned our attention to the femur. The lateral neck was removed. Intramedullary guide was used followed by the lateralizing reamer. We then broached up to a size 3 [place]. We trialed with a +7 offset dual mobility head. Hip was reduced. We had excellent stability with internal rotation of more than 75 degrees with the hip flexed to 90. She was stable in extension and external rotation. Stable in the sleeper position. Leg lengths were symmetric. At this point the femoral trial was removed. We irrigated out the femoral canal and dried it. Cement restrictor was placed. The cement was mixed on the back table. The size 3 standard offset [place] cemented stem was opened up on the back table. Cement was injected into the intramedullary canal and I used my thumbs to pressurized this. The stem was then inserted into the cement and excess cement was removed. Gentle pressure was held on this stem until the cement had completely cured. Once the cement had hardened we then assembled the bipolar head on the back table. This was gently impacted onto the trunnion and the hip was atraumatically reduced. Dilute Betadine solution was then used to irrigate out the hip. The periarticular injection cocktail was placed. The piriformis short external rotators and posterior capsular flap were repaired with #2 Vicryl sutures through bone tunnels. Fascia was run with a looped 1 PDS suture. Subcutaneous layer was closed with #1 PDS in a running fashion. The deep dermal layer was closed with running 2-0 Vicryl. Skin was closed with Dermabond and a Zipline. Silverlon dressing was placed followed by compressive dressing with 4 x 4's ABD and foam tape. Patient was then carefully rolled supine onto the hospital bed and transferred to recovery room in stable condition. Summary of implants: DePuy GRIPTION acetabular shell, 50 mm outer diameter. DePuy [place] cancellous bone screws 6.5 mm x 25 and 40 mm respectively. [place] hole eliminator. Dual mobility liner 50/43 for a [place] acetabular shell. By mentum polyethylene Ultrex liner 43/22. Articular ease metal femoral head 10/05 taper 22.25 diameter with +7 offset Postop course: Patient will be admitted overnight for pain control and monitoring. She will be on posterior hip precautions. Aspirin for DVT pro phylaxis. I attest to the content of the Intraoperative Record and any orders documented therein. Any exceptions are noted below.
[2023-12-07] MEDS ORDERED: diphenhydrAMINE 50 MG/ML VIAL IV PRN (14:05)
[2023-12-07] MEDS ORDERED: METOCLOPRAMIDE HCL INJ 5 MG/ML 2 ML VIAL IV PRN (14:05)
[2023-12-07] MEDS ORDERED: ALUMINUM/MAGNESIUM SUSP 30 ML UDC PO PRN (14:05)
[2023-12-07] MEDS ORDERED: bisacodyL 10 MG SUPP PR PRN (14:05)
[2023-12-07] MEDS ORDERED: NALOXONE HCL 0.4 MG/1 ML VIAL/CARP IV PRN (14:05)
[2023-12-07] MEDS ORDERED: MAGNESIUM HYDROXIDE SUSP 30 ML UDC PO PRN (14:05)
--- NOTE | 2023-12-07 14:05 | Operative Report ---
Post Operative Report Pre & Post Diagnosis Operation Date: 12/07/23 11:20 Pre-Op Diagnosis: Right Hip Osteoarthritis Post-Op Diagnosis: Right Hip Osteoarthritis I identified the patient and participated in the time-out.: Yes Procedure Operation Date: 12/07/23 11:20 Actual Procedures p Right Total Hip Arthroplasty(Right) - Patrick Reyes MD Surgeon Patrick Reyes MD Paint Tinter Cassandra Cano MD and KAROLYN Almaguer PA-C. Estimated Blood Loss 150 Findings Consistent with Post-Op Diagnosis Specimens femoral head and soft tissue Description of Procedure I was present during the entire case assisting with positioning, prepping, draping, wound retraction, wound closure, dressing and abduction pillow placement. Fellow also present. I served as an extra set of hands during the case. Please see Dr. Reyes procedure note for specifics of the case. I attest to the content of the Intraoperative Record and any orders documented therein. Any exceptions are noted below.
--- NOTE | 2023-12-07 14:11 | Operative Report ---
Post Operative Report Pre & Post Diagnosis Operation Date: 12/07/23 11:20 Pre-Op Diagnosis: Right Hip Osteoarthritis Post-Op Diagnosis: Right Hip Osteoarthritis I identified the patient and participated in the time-out.: Yes Procedure Operation Date: 12/07/23 11:20 Actual Procedures p Right Total Hip Arthroplasty(Right) - Patrick Reyes MD Surgeon Patrick Reyes MD Sales Assistant Displays Cassandra Cano MD and KAROLYN Almaguer PA-C. Estimated Blood Loss 150 Findings Consistent with Post-Op Diagnosis Same as postoperative diagnosis. Specimens The resected femoral head and neck. Description of Procedure Please see detailed operative note. I attest to the content of the Intraoperative Record and any orders documented therein. Any exceptions are noted below.
[2023-12-07] MEDS: ACETAMINOPHEN 1000 MG/100 ML IV IV ONE (14:56)
[2023-12-07] MEDS: ACETAMINOPHEN 1,000 MG/100 ML VIAL IV STA (14:58)
--- NOTE | 2023-12-07 14:59 | XRay Report ---
SINGLE VIEW PELVIS CLINICAL HISTORY: Postoperative examination. FINDINGS: An AP, portable, supine pelvic radiograph is compared to study dated 11/14/2023. The skeleta l structures are osteopenic. A bipolar right hip arthroplasty is in near anatomic alignment. 2 cortic al lag screws transfix the acetabular cup. No acute fracture is seen. [id number] osteoarthritic change is noted in the left hip. There is degenerative sclerosis of the sacroiliac joints. Phlebolit hs and a surgical clip are seen in the pelvis. Subcutaneous gas and soft tissue swelling overlying th e right hip are expected postsurgical changes. IMPRESSION: Expected postoperative findings status post right hip arthroplasty. No fracture is seen. Electronically signed by: Dionicio Ross M.D. 12/07/2023 2:58 PM
--- NOTE | 2023-12-07 15:02 | Anesthesiology Progress Note ---
Date of Service December 07, 2023 Anesthesia Post Procedure Vital Signs Vital Signs: Temp Pulse Resp BP Pulse Ox O2 Del Method O2 Flow Rate 12/07/23 14:40 80 80 H 96/55 L 100 Nasal Cannula 2 12/07/23 14:30 84 18 91/63 L 94 Room Air 12/07/23 14:20 89 14 102/58 L 95 Room Air 12/07/23 14:10 88 18 98/60 L 98 Oxymask 3 12/07/23 14:02 36.1 C L 90 16 92/60 L 97 Oxymask 6 12/07/23 10:22 36.5 C 65 16 145/76 H 99 Room Air Pain Intensity Right Hip: Pain Intensity: 5 Transfer of Care Handoff Completed per policy Notes Mental Status: alert / awake / arousable and participated in evaluation Patient Amnestic to Procedure: Yes Nausea / Vomiting: adequately controlled Pain: adequately controlled Airway Patency, RR, SpO2: stable & adequate BP & HR: stable & adequate Hydration State: stable & adequate Anesthetic Complications: no major complications apparent and Pt Satisfied with anesthetic care
[2023-12-07] MEDS: SODIUM CHLORIDE 0.9% 1,000 ML IV SCH (16:05)
[2023-12-07] MEDS: Scopolamine CHECK PATCH PLACEMENT SCH (16:06)
[2023-12-07] MEDS: KETOROLAC TROMETHAMINE 15 MG/ML VIAL IV SCH (16:09)
[2023-12-07] MEDS: DOCUSATE SODIUM 100 MG CAP PO SCH (20:35)
[2023-12-07] MEDS: SENNA 8.6 MG TAB PO SCH (20:35)
[2023-12-07] MEDS: ASPIRIN 81 MG ECTAB PO SCH (20:36)
[2023-12-07] MEDS: MONTELUKAST SODIUM 10 MG TABLET PO SCH (20:37)
[2023-12-07] MEDS: DULoxetine HCL 60 MG CAP PO SCH (20:37)
[2023-12-07] MEDS: GABAPENTIN 400 MG CAP PO SCH (20:37)
[2023-12-07] MEDS: CETIRIZINE HCL 10 MG TABLET PO SCH (20:37)
[2023-12-08 08:44] LABS: Basophils # (auto) 0.03 K/uL (0.00-0.20); Basophils % (auto) 0.3 %; Hematocrit (blood only) 31.3 % (37.0-47.0); Hemoglobin 9.9 g/dl (12.0-16.0); Immature Granulocytes # (auto) 0.04 K/uL (0.01-0.20); Immature Granulocytes % (auto) 0.4 %; Lymphocytes # (auto) 0.93 K/uL (1.20-3.40); Lymphocytes % (auto) 9.3 %; Mean Corpuscular Hemoglobin 27.7 pg (25.0-34.0); Mean Corpuscular Hgb Conc 31.6 g/dL (32.0-36.0); Mean Corpuscular Volume 87.7 fL (80.0-100.0); Monocytes # (auto) 1.15 K/uL (0.11-0.59); Monocytes % (auto) 11.5 %; Neutrophils # (auto) 7.83 K/uL (1.40-6.50); Neutrophils % (auto) 78.5 %; Platelet Count 188 K/uL (130-400); RDW Coefficient of Variation 13.1 % (11.5-14.5); RDW Standard Deviation 41.3 fL (36.4-46.3); Red Blood Count 3.57 M/uL (4.20-5.40); White Blood Count 9.98 K/ul (4.8-10.8)
[2023-12-08 08:57] LABS: BUN Creatinine Ratio 22.5 (10-20); Creatinine Clr Calc Pharmacy 28.8 ml/min; Est GFR (African American) 43.1 ml/min; Est GFR (Non-African American) 37.2 ml/min; Potassium 4.3 mmol/L (3.5-5.1)
[2023-12-08] MEDS: METOPROLOL SUCC 25MG EXT REL TAB PO SCH (09:04)
[2023-12-08] MEDS: CHOLECALCIFEROL 25 MCG (1000 UNITS) TAB PO SCH (09:04)
[2023-12-08] MEDS: PANTOprazole 40 MG TAB PO SCH (09:04)
[2023-12-08] MEDS: MELOXICAM 7.5 MG TAB PO SCH (09:04)
[2023-12-08] MEDS: CEROVITE ADV FORMULA TAB PO SCH (09:04)
[2023-12-08] MEDS: MAGNESIUM OXIDE 400 MG TAB PO SCH (09:05)
[2023-12-08] MEDS: OMEGA-3 (PURIFIED FISH OIL) 1 GM CAP PO SCH (09:05)
[2023-12-08] MEDS: MULTIVITAMIN TAB PO SCH (09:05)
[2023-12-08] MEDS: ATORVASTATIN 40 MG TAB PO SCH (09:05)
[2023-12-08] MEDS: CYANOCOBALAMIN (B-12) 500 MCG TABLET PO SCH (09:05)
--- NOTE | 2023-12-08 09:29 | Orthopedic Progress Note ---
Date of Service December 08, 2023 Assessment & Plan (1) S/P total hip arthroplasty: Plan: Total hip precautions reviewed PT/OT Abduction pillow use x 6 weeks Weightbearing as tolerated with walker assistance Keep Silverlon dressing in place until follow-up DVT prophylaxis with aspirin and LUCILA stockings Pain control with p.o. medication Ice with easy wrap Plan is to discharge home later today with in-home physical therapy for the first 2 weeks Follow-up at [facility] orthopedics as previously scheduled With questions contact our clinic at [phone] Admission and Anticipated Discharge Date Admission Date: December 07, 2023 Subjective This 88-year-old female is seen for D1 follow-up after undergoing right total hip arthroplasty. Patient states she is doing very well. She states her pain is well-controlled with the p.o. pain medication she has been given. She states that she does have some slight difficulty transitioning from a seated to a standing position using her walker unless someone is holding the front of it down. She is hoping to be discharged home today and states she has the help of her son in law and and daughter. Currently she denies chest pain, shortness of breath, fever, chills, sweats or numbness or tingling in her right lower extremity. She also denies nausea, vomiting, diarrhea or difficulty voiding. She states she has not had a bowel movement but is passing gas. Review of Systems Review of Systems: All systems reviewed & are unremarkable except as noted in Subjective Physical Exam Physical Exam: Right lower extremity: Patient is able to perform an active straight leg raise test. She is able to actively dorsi and plantarflex her foot. Her quad strength is 3+ out of 5. She has no pain with logroll testing. She does experience a slight twinge of pain with light passive external hip rotation but has no pain with passive flexion near 90 degrees or passive internal rotation of the hip. Her outer dressing was removed. The Silverlon is great clean dry and intact and left in place. Patient is neurovascularly intact in the right lower extremity. Results & Data Vital Signs (Past 12 Hours) Vital Signs Temp Pulse Pulse Resp BP Pulse Ox O2 Del Method 12/08/23 08:16 36.4 C L 80 20 116/61 95 Room Air 12/08/23 07:45 Room Air 12/08/23 03:07 36.9 C 65 18 128/67 98 Nasal Cannula 02/15/24 22:49 36.4 C L 67 16 107/65 99 Nasal Cannula O2 Flow Rate 12/08/23 08:16 12/08/23 07:45 12/08/23 03:07 2 12/07/23 22:49 2 Diagnostic Findings Laboratory Results WBC 9.98 K/ul (4.8-10.8) 12/08/23 07:59 RBC 3.57 M/uL (4.20-5.40) L 12/08/23 07:59 Hgb 9.9 g/dl (12.0-16.0) L 12/08/23 07:59 Hct 31.3 % (37.0-47.0) L 12/08/23 07:59 MCV 87.7 fL (80.0-100.0) 12/08/23 07:59 MCH 27.7 pg (25.0-34.0) 12/08/23 07:59 MCHC 31.6 g/dL (32.0-36.0) L 12/08/23 07:59 RDW Std Deviation 41.3 fL (36.4-46.3) 12/08/23 07:59 RDW Coeff of Quintin 13.1 % (11.5-14.5) 12/08/23 07:59 Plt Count 188 K/uL (130-400) 12/08/23 07:59 MPV 11.0 fL (9.4-12.4) 12/08/23 07:59 Immature Gran % (Auto) 0.4 % 12/08/23 07:59 Neut % (Auto) 78.5 % 12/08/23 07:59 Lymph % (Auto) 9.3 % 12/08/23 07:59 [place]ner % (Auto) 11.5 % 12/08/23 07:59 Eos % (Auto) 0.0 % 12/08/23 07:59 Baso % (Auto) 0.3 % 12/08/23 07:59 Neut # (Auto) 7.83 K/uL (1.40-6.50) H 12/08/23 07:59 Lymph # (Auto) 0.93 K/uL (1.20-3.40) L 12/08/23 07:59 [place]ulkner # (Auto) 1.15 K/uL (0.11-0.59) H 12/08/23 07:59 Eos # (Auto) 0.00 K/uL (0.00-0.50) 12/08/23 07:59 Baso # (Auto) 0.03 K/uL (0.00-0.20) 12/08/23 07:59 Immature Gran # (Auto) 0.04 K/uL (0.01-0.20) 12/08/23 07:59 Sodium 137 mmol/L (136-145) 12/08/23 07:59 Potassium 4.3 mmol/L (3.5-5.1) 12/08/23 07:59 Chloride 107 mmol/L (98-107) 12/08/23 07:59 Carbon Dioxide 23 mmol/L (21-32) 12/08/23 07:59 Anion Gap 7 (3-11) 12/08/23 07:59 BUN 29 mg/dl (6-23) H 12/08/23 07:59 Creatinine 1.29 mg/dl (0.6-1.2) H 12/08/23 07:59 Est Cr Clr Drug Dosing 28.8 ml/min 12/08/23 07:59 Est GFR ( Amer) 43.1 ml/min 12/08/23 07:59 Est GFR (Non-Af Amer) 37.2 ml/min 12/08/23 07:59 BUN/Creatinine Ratio 22.5 (10-20) H 12/08/23 07:59 Glucose 103 mg/dl (70-99(Fasting)) H 12/08/23 07:59 Calcium 9.0 mg/dl (8.6-10.3) 12/08/23 07:59 Impressions Pelvis X-Ray 12/07/23 14:05 SINGLE VIEW PELVIS CLINICAL HISTORY: Postoperative examination. FINDINGS: An AP, portable, supine pelvic radiograph is compared to study dated 11/14/2023. The skeletal structures are osteopenic. A bipolar right hip arthroplasty is in near anatomic alignment. 2 cortical lag screws transfix the acetabular cup. No acute fracture is seen. [id number] osteoarthritic change is noted in the left hip. There is degenerative sclerosis of the sacroiliac joints. Phleboliths and a surgical clip are seen in the pelvis. Subcutaneous gas and soft tissue swelling overlying the right hip are expected postsurgical changes. IMPRESSION: Expected postoperative findings status post right hip arthroplasty. No fracture is seen. Electronically signed by: Dionicio Ross M.D. 12/07/2023 2:58 PM
--- NOTE | 2023-12-08 09:39 | Discharge Summary ---
Date of Service December 08, 2023 Admission HPI Per Admitting Provider History of Present Illness (including history relevant to procedure): This 88-year-old female presents the clinic today for preoperative history and physical. Patient states she has been having significant right hip pain for the past 6 months but over the past month it has increased. She localizes most of her pain over the lateral aspect of her hip. She states that it seems to be worse in the morning when she wakes up or down steps. She has recently began using a cane as an assistive device. Patient has had ultrasound-guided corticosteroid injections with only mild pain relief. She was on Mobic and exp erienced significant relief initially but states it is ineffective now. She states that she does experience some episodes of the leg feeling very weak and giving out. She is electing to proceed with surgical invention at this time due to failed conservative management of her hip arthritis. Review Of Systems: A 12 point review of systems is performed and is unremarkable except for those things stated in the HPI and past medical history. Past Medical History: Problems: Arthritis of right hip Seborrheic keratoses Changing skin lesion History of basal cell carcinoma of skin Actinic keratoses Hiatal hernia Neuropathic pain Gastric reflux Cancer Heart burn Heart murmur Dry eyes . Breast cancer with radiation treatment High cholesterol Procedure History Procedure Procedure Date Comments Shave biopsy and cauterization of skin 11/02/2023 Gallbladder 2010 - removed Left Rotator Cuff Repair 2007 Colonoscopy 2006 Left Knee Surgery 2004 Right Knee Surgery 2004 Left Breast Lumpectomy 2003 Biopsy of breast Heart valve replacement 2002 2003 Allergies and Sensitivities: Adhesive bandage Current Home Meds: (Last Updated 11/14 16:15) DULoxetine (DULoxetine 20 mg oral delayed release capsule) 60mg acetaminophen (Tylenol 500 mg oral tablet) 2 tab PO q6h albuterol (Albuterol (Eqv-ProAir HFA) 90 mcg/inh inhalation aerosol) aspirin atorvastatin (atorvastatin 40 mg oral tablet) cyanocobalamin (Vitamin B12) diclofenac (diclofenac sodium 75 mg oral delayed release tablet) 75 mg PO bid PRN: as needed for pain with food gabapentin (gabapentin 400 mg oral capsule) 400 mg PO bid magnesium aspartate meloxicam metoprolol (metoprolol tartrate 25 mg oral tablet) 12.5 mg PO bid omega-3 polyunsaturated fatty acids (Fish Oil oral capsule) omeprazole (omeprazole 20 mg oral delayed release tablet) 20 mg PO Daily polyethylene glycol 3350 (MiraLax) pravastatin (pravastatin 20 mg oral tablet) 20 mg PO Daily senna 2 tab PO q24h thiamine (Vitamin B1) PO Daily Initial Wt: 11/14 72.4 kg 159 lb Admission Exam Per Admitting Provider Physical Exam: (relevant to the procedure, including heart and lung evaluation) General: Alert and oriented x 3 with proper grooming and hygiene Eyes: Pupils are equal and reactive to light with accommodation. Extraocular movements are intact Throat: Posterior oropharynx is clear with absence of edema, erythema or exudate. Dentition is appropriate. Cardiac: Regular rate and rhythm with a grade 2/6 holosystolic murmur heard best in the lower left sternal border. Lungs: Clear to auscultation throughout with no wheezing, rales or rhonchi Abdomen: Nonobese, nondistended, nontender with NABS Extremities: Right hip: Flexion is to 110 degrees, external rotation to 45 degrees and internal rotation to 15 degrees. Straight leg raise test and Stinchfield test are both positive. Patient experiences tenderness to palpation in the groin area. Logroll test reproduce any pain. Patient is neurovascularly intact. Neuro: Cranial nerves II through XII are intact no motor or sensory deficit Skin: Normal in appearance with no open skin areas or discharge Principal Diagnosis Right hip osteoarthritis Discharge Exam Right lower extremity: Patient is able to perform an active straight leg raise test. She is able to actively dorsi and plantarflex her foot. Her quad strength is 3+ out of 5. She has no pain with logroll testing. She does exper ience a slight twinge of pain with light passive external hip rotation but has no pain with passive flexion near 90 degrees or passive internal rotation of the hip. Her outer dressing was removed. The Silverlon is great clean dry and intact and left in place. Patient is neurovascularly intact in the right lower extremity. Discharge Data Allergies Allergy/AdvReac Type Severity Reaction Status Date / Time iodine Allergy Mild Rash Verified 12/07/23 10:21 pregabalin [From Lyrica] AdvReac Severe hot flashes Verified 12/07/23 10:15 prednisone AdvReac Intermediate Worsening Verified 12/07/23 10:15 Neuropathy Procedures Performed Operation Date: 12/07/23 11:20 Actual Procedures p Right Total Hip Arthroplasty(Right) - Patrick Reyes MD Hospital Course (1) S/P total hip arthroplasty: Patient had an uneventful overnight stay following right total hip arthroplasty. She is very pleased with results of surgery. She hopes that she can be discharged home later today with the help of her family. She also states that she has been established with in-home physical therapy for the first 2 weeks. Total hip precautions reviewed PT/OT Abduction pillow use x 6 weeks Weightbearing as tolerated with walker assistance Keep Silverlon dressing in place until follow-up DVT prophylaxis with aspirin and LUCILA stockings Pain control with p.o. medication Ice with easy wrap Plan is to discharge home later today with in-home physical therapy for the first 2 weeks Follow-up at [facility] orthopedics as previously scheduled With questions contact our clinic at [phone] Total Time Total Time Spent Total Time Spent (In Minutes): 25 minutes Discharge Plan Discharge Items Patient Disposition: Home - Home Health Services Reason For Visit: Right Hip Osteoarthritis Discharge Diagnosis: Right Hip Osteoarthritis Activity: As commented below Lifting: None Bathing: Keep incision dry Bathing Comment: May shower tomorrow Sexual Activity: Wait until after follow-up appointment Exercise/Sports: Wait until after follow-up appointment Driving/Machine Use: No driving until cleared by dairy specialist Weightbearing: Right weightbearing Weightbearing Comment: as tolerated with walker assistance Non-emergency contact: Surgeon Call non-emergency contact if: you have any medication questions, your pain is not controlled, your temperature is above 101.5, your wound has increased drainage and your wound pain has increased Follow-up/Referrals: Baldomero Holder MD [Primary Care Provider] - Diet: Heart Healthy Ambulatory Orders: Prothrombin Time INR (Routine) Timeframe: 20231114 Location: Determined by Patient Ordered By: Araceli Carreon Partial Thromboplastin Time (Routine) Timeframe: 1 Day Location: Determined by Patient Ordered By: Araceli Carreon Type and Screen (Routine) Timeframe: 20231114 Location: Determined by Patient Ordered By: Araceli Carreon Addtl Attending Provider Instructions: Post-operative Instructions Dear Patient and Family/Friends, Before you are discharged from the hospital, it is important to know what to expect when you get home after surgery. To that end, we have created this sheet of discharge instructions which covers many commonly asked questions. Make sure you go through this sheet in its entirety with your nurse before you are discharged. Please note that we will go over the specifics of your surgery and recovery when you return for your first post-operative visit. Sincerely, Dr. Reyes Medication 1. Tramadol 50 mg: Take 1-2 tabs every 4-6 hours as needed for postoperative pain control. A prescription for this will be sent to your pharmacy. 2. Meloxicam 7.5 mg: Increase your daily meloxicam to twice daily for the first 30 days postoperatively. If you need a refill contact the clinic and I will send it to your pharmacy. 3. Aspirin 81 mg: Increase your daily aspirin regimen to twice daily for the first 30 days postoperatively for blood clot prevention. 4. Extra strength Tylenol 500 mg: Take 1-2 tabs every 6-8 hours as needed for additional supplemental pain control. Please purchase the medication. Pain Expect to be in a fair amount of pain after surgery. Remember, our goal is not to eliminate your pain, but to make it tolerable. It is a good idea to stay ahead of your pain by taking the medications you were prescribed once you get home. Typically, the pain starts improving 3-7 days after surgery. You should start weaning off the narcotic pain medication (oxycodone, hydrocodone, hydromorphone, morphine) as soon as your pain improves. Please call our office if your pain is not adequately controlled. Ice Ice your operative site at least 5 times a day for 15-30 minutes at a time. Make sure you have a thin cloth between the ice or cooling unit and your skin to prevent limon bite. This is especially important if you received a nerve block. Continue icing your operative site for the first 5-7 days after surgery, then as needed. Diet/Nausea/Vomiting Start by drinking clear liquids and eating crackers. If you can tolerate this, then you may resume your normal diet. If you feel nauseated or vomit, take Zofran/ondansetron (if prescribed). Please call our office if you have intractable nausea or vomiting, or, if after hours, you may go to the Emergency Room for help. Constipation Constipation is a common side effect of narcotic pain medication. If you have not had a bowel movement within 2 days after surgery, we recommend purchasing an over the counter laxative such as Milk of Magnesia, Dulcolax, or Miralax from a local pharmacy, and taking it as instructed. Call our clinic if any questions. Nerve block The anesthesia team sometimes places a nerve block to help with post-operative pain control. This results in significant numbness and inability to move the extremity. The nerve block usually wears off in 8-12 hours, but sometimes can last up to 24 hours. Please call our office if you are still unable to move your extremity after 24 hours, unless you received a pain pump to take home. Nerve blocks typically wear off quickly, so start taking pain medication as soon as you start feeling soreness near your surgical site. Weight bearing and Range of Motion. Do not bear any weight through your operative extremity immediately after surgery. If you had upper extremity surgery, do not lift anything with that arm. If you are in a knee brace, keep it locked in place until your follow-up. We will discuss your weight bearing, range of motion, and lifting restrictions i n detail at your first post-operative appointment. Continuous Passive Motion (CPM) Machine If you were prescribed a CPM machine, it will start after your first post- operative appointment, at which time we will give you instructions on the range of motion settings and duration of treatment Physical therapy You will be given a prescription for physical therapy or occupational therapy at your first post-operative appointment. Typically, patients start therapy within 1 week of surgery Wound care and showering We will inspect your wound at your first post-operative visit, and may do a dressing change at that time. Most patients will be in a water-proof dressing that is removed 14 days after surgery. It is normal to see some dried blood on t he dressing. Do not remove your dressing, paper strips or sutures yourself unless you are given permission. Showering is allowed the day after surgery. Do not scrub or remove any dressings. The wound should not be submerged underwater (i.e. in a bathtub or pool) until 4 weeks after surgery LUCILA stockings If you were given white stockings, these are to be worn at all times except to shower (on both legs) for the first 2 weeks after surgery. Driving You may not drive while taking narcotic pain medication or while in a cast, splint, sling or brace. You, the patient, need to make the final determination about when you are safe to drive, however, the earliest you may consider driving after surgery is below: Hand/Wrist/Elbow Surgery: 3 days Shoulder Surgery: 2 weeks Hip,/Knee/Ankle Surgery: 4 weeks Fracture repair: 6 weeks Return to Work Your return to work depends on what surgery was done and what type of work you do. Please bring any paperwork your employer needs completed to your first post-operative visit. Also, bring a description of your job duties, as this helps us to understand what risks you may face at work. Travel Avoid long distance travel (greater than 1 hour) in airplanes and cars for the first 6 weeks after surgery. If you must travel, you need to have a Doppler ultrasound done before you travel to rule out a blood clot in your legs. Follow-up You should have a follow-up appointment already scheduled 1-2 days after surgery. If not, please contact our office to make this appointment before you leave the hospital. When to call the office It is normal to have swelling and bruising in the limb that was operated on. This will improve with time. It is also normal to have fevers for the first 2 days after surgery. Reasons you should call your doctor include: Uncontrolled pain; Nausea, vomiting, or constipation that does not improve with medication; Fevers over 101.5, chills, sweats; Drainage or bleeding from the wound; Foul odor; Spreading areas of redness; Any other concerns Pending Studies at Discharge: No Stand-Alone Forms: My [facility] Medications and DC Order Prescriptions: New acetaminophen [Tylenol Extra Strength] 500 mg Tablet 1,000 mg PO Q8 30 Days Qty: 180 0RF tramadol 50 mg Tablet 50 - 100 mg PO Q4H MDD Ongoing treatment PRN (Reason: Postoperative pain control) Qty: 28 0RF Continued duloxetine 60 mg capsule,delayed release(DR/EC) 60 mg PO HS 90 Days Qty: 90 3RF metoprolol succinate 25 mg tablet extended release 24 hr 12.5 mg PO QAM Qty: 90 3RF cholecalciferol (vitamin D3) 25 mcg (1,000 unit) capsule 1,000 units PO QAM omega-3 fatty acids 500 mg capsule 1,200 mg PO QAM gabapentin 400 mg capsule 800 mg PO BID magnesium oxide 500 mg capsule 500 mg PO QAM atorvastatin 40 mg tablet 40 mg PO QAM Qty: 30 cyanocobalamin (vitamin B-12) [Vitamin B-12] 500 mcg Tablet 500 mcg PO QAM cetirizine [Zyrtec] 10 mg Tablet 10 mg PO QPM Eye Multivitamin 2,148 mcg-113 mg-45 mg-17.4mg Tablet 1 tab PO QAM Rx Instructions: administer with AM and PM meals montelukast [Singulair] 10 mg tablet 10 mg PO QPM omeprazole 20 mg capsule,delayed release(DR/EC) 20 mg PO QAM Changed aspirin 81 mg tablet,delayed release (DR/EC) 81 mg PO BID 30 Days Qty: 60 0RF meloxicam 7.5 mg Tablet 7.5 mg PO BID 30 Days Qty: 60 1RF Admission Data Admit Date/Time: 12/07/23 14:05 Attending Provider: Patrick Reyes Admit Provider: Patrick Reyes Primary Care Provider: Baldomero Holder Other Providers: [facility]
[2023-12-08] MEDS: traMADol HCL 50 MG TABLET PO PRN (15:17)
--- NOTE | 2023-12-09 11:25 | Orthopedic Progress Note ---
Date of Service December 09, 2023 Assessment & Plan (1) S/P total hip arthroplasty: Plan PT and OT today. Posterior hip precautions. Patient should use a walker. Patient can discharge home when she passes physical therapy. Aspirin for DVT prophylaxis. Follow-up in the office 2 weeks from now with KAROLYN Almaguer. Admission and Anticipated Discharge Date Admission Date: December 07, 2023 Subjective Patient seen and examined on a.m. rounds. She reports feeling tired since the surgery, however she says the pain in her right hip is well-controlled. She is anxious to be discharged home from the hospital today. Denies numbness or tingling down her leg. Physical Exam Physical Exam: In general she is alert and oriented x 3, appropriate and conversational. Right hip exam shows her Silverlon dressing to be clean dry and intact. Swelling around the hip incision appropriate for this stage postoperatively. Distally neurovascularly intact. Results & Data Vital Signs (Past 12 Hours) Vital Signs Temp Pulse Resp BP Pulse Ox O2 Del Method 12/09/23 07:42 Room Air 12/09/23 07:25 36.5 C 67 16 104/60 94 Room Air
[2023-12-10] MEDS: COUGH DROP (SUGAR FREE) LOZ 24 LOZ/1 BOX BUCCAL PRN (05:36)
--- NOTE | 2023-12-10 12:56 | Discharge Summary ---
Date of Service December 10, 2023 Admission HPI Per Admitting Provider History of Present Illness: This 88-year-old female presented to the office with significant right hip pain for the past 6 months but over the prior month it has increased. She localizes most of her pain over the lateral aspect of her hip. She states that it seems to be worse in the morning when she wakes up or down steps. She has recently began using a cane as an assistive device. Patient has had ultrasound-guided corticosteroid injections with only mild pain relief. She was on Mobic and experienced significant relief initially but states it is ineffective now. She states that she does experience some episodes of the leg feeling very weak and giving out. She is electing to proceed with surgical invention at this time due to failed conservative management of her hip arthritis. 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 Laying in bed. Alert and oriented. Skin: Warm and dry with good turgor. No rashes. Expected postoperative ecchymosis. No significant edema. Surgical dressing is in place on the right hip. Musculoskeletal: The patient has supple motion of her right hip for both flexion as well as rotation. She has intact active motor function of the knee, ankle, and toes. Neurologic: Gross sensation is intact across the right leg by soft touch. She complains of tingling on the ball of her foot, which is consistent with her baseline. Peripheral pulses are 2+. Discharge Data Allergies Allergy/AdvReac Type Severity Reaction Status Date / Time iodine Allergy Mild Rash Verified 12/07/23 10:21 pregabalin [From Lyrica] AdvReac Severe hot flashes Verified 12/07/23 10:15 prednisone AdvReac Intermediate Worsening Verified 12/07/23 10:15 Neuropathy Procedures Performed Operation Date: 12/07/23 11:20 Actual Procedures p Right Total Hip Arthroplasty(Right) - Patrick Reyes MD Ordered Studies Postop radiographic imaging of the pelvis shows a well-seated right total hip arthroplasty without evidence of complication. WBCs checked the morning after surgery but normal at 9.98. H&H was 9.9 and 31.3. Platelets were normal at 188,000. PRP showed sodium 137, potassium 4.3, anion gap of 7. BUN of 29 and creatinine 1.29, which is consistent with her baseline. Morning glucose was 103. Hospital Course (1) S/P total hip arthroplasty: The patient was admitted through same-day surgery 12/07/2023. She underwent successful right total hip arthroplasty and was transferred to the recovery room. She had no further issues that afternoon and did well. Pain was managed with IV and oral medication. On the morning of 12/08/23 she was reassessed. The patient was again doing reasonably well. She participated with physical therapy and Occupational Therapy. She expressed anxiety about being discharged home. Physical therapy recommended additional treatment. Because of this, she was kept an additional day. Vitals remained stable. Lab work was within reasonable limits. She was reassessed on the morning of 12/09/2023. She was again doing reasonably well. She was able to participate in physical therapy and Occupational Therapy, but still required additional assistance. Additional rehab was recommended. Application to [facility] was made. She remained stable throughout the day and had no further complaints. She was reassessed on the morning of 12/10/2023. She felt ready for discharge. She was accepted to [facility] rehab. Written discharge instructions were provided. Follow-up in the office as scheduled in about 10 days. Call with any other concerns. Total Time Total Time Spent Total Time Spent (In Minutes): 20 Discharge Plan Discharge Items Patient Disposition: Transfer Inpatient Rehab Fac Reason For Visit: Right Hip Osteoarthritis Discharge Diagnosis: Right Hip s/p total hip replacement Activity: As commented below Lifting: None Bathing: Keep incision dry Bathing Comment: May shower tomorrow Sexual Activity: Wait until after follow-up appointment Exercise/Sports: Wait until after follow-up appointment Driving/Machine Use: No driving until cleared by contact center specialist Weightbearing: Right weightbearing Weightbearing Comment: as tolerated with walker assistance Non-emergency contact: Surgeon Call non-emergency contact if: you have any medication questions, your pain is not controlled, your temperature is above 101.5, your wound has increased drainage and your wound pain has increased Follow-up/Referrals: Baldomero Holder MD [Primary Care Provider] - Diet: Heart Healthy Ambulatory Orders: Prothrombin Time INR (Routine) Timeframe: 20231114 Location: Determined by Patient Ordered By: Araceli Carreon Partial Thromboplastin Time (Routine) Timeframe: 1 Day Location: Determined by Patient Ordered By: Araceli Carreon Type and Screen (Routine) Timeframe: 20231114 Location: Determined by Patient Ordered By: Araceli Carreon Addtl Attending Provider Instructions: Post-operative Instructions Dear Patient and Family/Friends, Before you are discharged from the hospital, it is important to know what to expect when you get home after surgery. To that end, we have created this sheet of discharge instructions which covers many commonly asked questions. Make sure you go through this sheet in its entirety with your nurse before you are discharged. Please note that we will go over the specifics of your surgery and recovery when you return for your first post-operative visit. Sincerely, Dr. Reyes Medication 1. Tramadol 50 mg: Take 1-2 tabs every 4-6 hours as needed for postoperative pain control. A prescription for this will be sent to your pharmacy. 2. Meloxicam 7.5 mg: Increase your daily meloxicam to twice daily for the first 30 days postoperatively. If you need a refill contact the clinic and I will send it to your pharmacy. 3. Aspirin 81 mg: Increase your daily aspirin regimen to twice daily for the first 30 days postoperatively for blood clot prevention. 4. Extra strength Tylenol 500 mg: Take 1-2 tabs every 6-8 hours as needed for additional supplemental pain control. Please purchase the medication. Pain Expect to be in a fair amount of pain after surgery. Remember, our goal is not to eliminate your pain, but to make it tolerable. It is a good idea to stay ahead of your pain by taking the medications you were prescribed once you get home. Typically, the pain starts improving 3-7 days after surgery. You should start weaning off the narcotic pain medication (oxycodone, hydrocodone, hydromorphone, morphine) as soon as your pain improves. Please call our office if your pain is not adequately controlled. Ice Ice your operative site at least 5 times a day for 15-30 minutes at a time. Make sure you have a thin cloth between the ice or cooling unit and your skin to prevent limon bite. This is especially important if you received a nerve block. Continue icing your operative site for the first 5-7 days after surgery, then as needed. Diet/Nausea/Vomiting Start by drinking clear liquids and eating crackers. If you can tolerate this, then you may resume your normal diet. If you feel nauseated or vomit, take Zofran/ondansetron (if prescribed). Please call our office if you have intr actable nausea or vomiting, or, if after hours, you may go to the Emergency Room for help. Constipation Constipation is a common side effect of narcotic pain medication. If you have not had a bowel movement within 2 days after surgery, we recommend purchasing an over the counter laxative such as Milk of Magnesia, Dulcolax, or Miralax from a local pharmacy, and taking it as instructed. Call our clinic if any questions. Nerve block The anesthesia team sometimes places a nerve block to help with post-operative pain control. This results in significant numbness and inability to move the extremity. The nerve block usually wears off in 8-12 hours, but sometimes can last up to 24 hours. Please call our office if you are still unable to move your extremity after 24 hours, unless you received a pain pump to take home. Nerve blocks typically wear off quickly, so start taking pain medication as soon as you start feeling soreness near your surgical site. Weight bearing and Range of Motion. Do not bear any weight through your operative extremity immediately after surgery. If you had upper extremity surgery, do not lift anything with that arm. If you are in a knee brace, keep it locked in place until your follow-up. We will discuss your weight bearing, range of motion, and lifting restrictions in detail at your first post-operative appointment. Physical therapy You will be given a prescription for physical therapy or occupational therapy at your first post-operative appointment. Typically, patients start therapy within 1 week of surgery Wound care and showering We will inspect your wound at your first post-operative visit, and may do a dressing change at that time. Most patients will be in a water-proof dressing that is removed 14 days after surgery. It is normal to see some dried blood on the dressing. Do not remove your dressing, paper strips or sutures yourself unless you are given permission. Showering is allowed the day after surgery. Do not scrub or remove any dressings. The wound should not be submerged underwater (i.e. in a bathtub or pool) until 4 weeks after surgery LUCILA stockings If you were given white stockings, these are to be worn at all times except to shower (on both legs) for the first 2 weeks after surgery. Driving You may not drive while taking narcotic pain medication or while in a cast, splint, sling or brace. You, the patient, need to make the final determination about when you are safe to drive, however, the earliest you may consider driving after surgery is below: Hip,/Knee/Ankle Surgery: 4 weeks Fracture repair: 6 weeks Return to Work Your return to work depends on what surgery was done and what type of work you do. Please bring any paperwork your employer needs completed to your first post-operative visit. Also, bring a description of your job duties, as this helps us to understand what risks you may face at work. Travel Avoid long distance travel (greater than 1 hour) in airplanes and cars for the first 6 weeks after surgery. If you must travel, you need to have a Doppler ultrasound done before you travel to rule out a blood clot in your legs. Follow-up You should have a follow-up appointment already scheduled 1-2 days after surgery. If not, please contact our office to make this appointment before you leave the hospital. When to call the office It is normal to have swelling and bruising in the limb that was operated on. This will improve with time. It is also normal to have fevers for the first 2 days after surgery. Reasons you should call your doctor include: Uncontrolled pain; Nausea, vomiting, or constipation that does not improve with medication; Fevers over 101.5, chills, sweats; Drainage or bleeding from the wound; Foul odor; Spreading areas of redness; Any other concerns Pending Studies at Discharge: No Stand-Alone Forms: My [facility] Skilled Items Patient informed of condition?: Yes DNR: No Discharge Level of Care: Acute rehab Communicable Disease: No Discharge Prognosis: Stable Lines: None Urinary Catheter: No Medications and DC Order Prescriptions: New acetaminophen [Tylenol Extra Strength] 500 mg Tablet 1,000 mg PO Q8 30 Days Qty: 180 0RF tramadol 50 mg Tablet 50 - 100 mg PO Q4H MDD Ongoing treatment PRN (Reason: Postoperative pain control) Qty: 28 0RF Continued duloxetine 60 mg capsule,delayed release(DR/EC) 60 mg PO HS 90 Days Qty: 90 3RF metoprolol succinate 25 mg tablet extended release 24 hr 12.5 mg PO QAM Qty: 90 3RF cholecalciferol (vitamin D3) 25 mcg (1,000 unit) capsule 1,000 units PO QAM omega-3 fatty acids 500 mg capsule 1,200 mg PO QAM gabapentin 400 mg capsule 800 mg PO BID magnesium oxide 500 mg capsule 500 mg PO QAM atorvastatin 40 mg tablet 40 mg PO QAM Qty: 30 cyanocobalamin (vitamin B-12) [Vitamin B-12] 500 mcg Tablet 500 mcg PO QAM cetirizine [Zyrtec] 10 mg Tablet 10 mg PO QPM Eye Multivitamin 2,148 mcg-113 mg-45 mg-17.4mg Tablet 1 tab PO QAM Rx Instructions: administer with AM and PM meals montelukast [Singulair] 10 mg tablet 10 mg PO QPM omeprazole 20 mg capsule,delayed release(DR/EC) 20 mg PO QAM Changed aspirin 81 mg tablet,delayed release (DR/EC) 81 mg PO BID 30 Days Qty: 60 0RF meloxicam 7.5 mg Tablet 7.5 mg PO BID 30 Days Qty: 60 1RF Discharge Orders: Discharge Order (Routine); Ordered 12/10/23 Ordered By: Mike Laresn Admission Data Admit Date/Time: 12/07/23 14:05 Attending Provider: Patrick Reyes Admit Provider: Patrick Reyes Primary Care Provider: Baldomero Holder Other Providers: [facility],Home Healthcare; [facility],Health Other Interventions: Discharge Summary Assessment (RN) Last Done: 12/10/23 13:09
== END 2023-12-10 14:07 ==
LOC: 3E 09:41 → ASU 09:41
DX: I95.9 Hypotension, unspecified; K21.9 Gastro-esophageal reflux disease without esophagitis; Z95.2 Presence of prosthetic heart valve; Z79.82 Long term (current) use of aspirin; E78.5 Hyperlipidemia, unspecified; M16.11 Unilateral primary osteoarthritis, right hip; Z79.899 Other long term (current) drug therapy; I48.91 Unspecified atrial fibrillation; I12.9 Hypertensive chronic kidney disease with stage 1 through stage 4 chronic kidney disease, or unspecified chronic kidney disease; Z88.8 Allergy status to other drugs, medicaments and biological substances; N18.9 Chronic kidney disease, unspecified; Z91.048 Other nonmedicinal substance allergy status

== ENCOUNTER 2025-01-28 11:08 | Inpatient (IN) ==
[2025-01-28 11:50] LABS: Basophils # (auto) 0.04 K/uL (0.00-0.20); Basophils % (auto) 0.8 %; Eosinophils # (auto) 0.24 K/uL (0.00-0.50); Eosinophils % (auto) 4.9 %; Hematocrit (blood only) 36.6 % (37.0-47.0); Hemoglobin 11.7 g/dl (12.0-16.0); Immature Granulocytes # (auto) 0.01 K/uL (0.01-0.20); Immature Granulocytes % (auto) 0.2 %; Lymphocytes # (auto) 1.32 K/uL (1.20-3.40); Lymphocytes % (auto) 26.8 %; Mean Corpuscular Hemoglobin 28.1 pg (25.0-34.0); Mean Corpuscular Volume 87.8 fL (80.0-100.0); Mean Platelet Volume 10.8 fL (9.4-12.4); Monocytes # (auto) 0.58 K/uL (0.11-0.59); Monocytes % (auto) 11.8 %; Neutrophils # (auto) 2.74 K/uL (1.40-6.50); Neutrophils % (auto) 55.5 %; Platelet Count 204 K/uL (130-400); RDW Coefficient of Variation 13.9 % (11.5-14.5); RDW Standard Deviation 44.7 fL (36.4-46.3); Red Blood Count 4.17 M/uL (4.20-5.40); White Blood Count 4.93 K/ul (4.8-10.8)
--- NOTE | 2025-01-28 11:51 | XRay Report ---
XR chest 1V portable CLINICAL HISTORY: Chest pain, nonspecific COMPARISON STUDY: 09/16/2024 FINDINGS: Stable average. Stable cardiomegaly without pulmonary vascular congestion. No effusion, con solidation, or pneumothorax. IMPRESSION: No acute findings. ACT 112: Negative or not required by law. Electronically signed by: Teodoro Carlisle M.D. 01/28/2025 11:50 AM
[2025-01-28 12:11] LABS: Albumin Globulin Ratio 1.8 (0.9-2); Albumin Level 4.2 gm/dl (3.4-5.0); BUN Creatinine Ratio 18.6 (10-20); Bilirubin,Total 0.5 mg/dl (0.2-1.0); Calcium 9.4 mg/dl (8.6-10.3); Creatinine Clr Calc Pharmacy 29.3 ml/min; Globulin 2.3 gm/dl (2.5-4.0); Potassium 4.2 mmol/L (3.5-5.1); Total Protein 6.5 gm/dl (6.0-8.3)
[2025-01-28 12:14] LABS: Troponin I High Sensitivity 6.8 pg/ml (0-14)
[2025-01-28 12:15] LABS: Partial Thromboplastin Ratio 0.9; Partial Thromboplastin Time 25 Seconds (21-31); Prothrombin Time 10.8 Seconds (9.0-12.0)
[2025-01-28] MEDS: SODIUM CHLORIDE 0.9% 500 ML IV ONE (12:30)
--- NOTE | 2025-01-28 12:57 | Emergency Department Note ---
Impression & Plan Atrial flutter with rapid ventricular response, Postural dizziness ED Provider Note ED Provider Note NAME: HEIDY DICK AGE:89 SEX: Female : 1935 ARRIVES VIA: EMS INFORMANT: Patient ED PROVIDER(s): Shikha Mclaughlin DO CHIEF COMPLAINT: Tachycardia HPI: This is an 89-year-old female referred to the emergency department from her PCPs office due to concern for tachycardia. Patient states she has had tachycardia in the past although no recent or ongoing issues. She states she does not need to routinely see cardiology but she has seen them previously. Patient states she did have 1 episode of A-fib after surgery but has not had any episodes since. Patient states she does intermittently develop slight dizziness with standing after being seated for a long period but she states otherwise she does not have any dizziness with exertion or other position changes. She denies chest pain, palpitations, shortness of breath, nausea, diaphoresis, leg swelling, recent illness, or recent infection. Patient does take 12.5 mg of Toprol XL daily. She did take her dose this morning. She states she does not use any blood thinners. PAST MEDICAL HISTORY:See Below PAST SURGICAL HISTORY:See Below FAMILY HISTORY:See Below SOCIAL HISTORY:See Below HOME MEDICATIONS:See Below ALLERGIES:See Below VITALS:See Below PHYSICAL EXAMINATION: GENERAL: alert, well appearing, well nourished, no distress, non-toxic EYE EXAM: normal conjunctiva, PERRL and EOM's grossly intact OROPHARYNX: no exudate, no erythema, lips, buccal mucosa, and tongue normal and mucous membranes are moist NECK: supple, no nuchal rigidity, no adenopathy, non-tender LUNGS: Clear to auscultation. Normal chest wall mechanics, no w/r/r HEART: no murmurs, S1 normal and S2 normal ABDOMEN: abdomen soft, non-tender, normo-active bowel sounds, no masses, no rebound or guarding. SKIN: no rashes, petechiae, orbruising UPPER EXTREMITIES: upper extremities are grossly normal. FROM, nml pulses b/l. LOWER EXTREMITIES: No pitting edema. FROM, nml pulses b/l. NEURO EXAM: Normal sensorium, cranial nerves II-XII grossly intact, normal speech, no facial droop,nogross weakness of arms, no gross weakness of legs. Gross sensation intact. No ataxia. Vital Signs: reviewed and remarkable Differential Diagnosis: Dysrhythmia, PVCs, PACs, electrolyte abnormality, thyroid storm, ACS, PE, dehydration, anxiety, medication ADR, occult infection, as well as others were considered MEDICAL DECISION MAKING: This is an 89-year-old female who presents emergency department after being referred here from her PCPs office due to finding of tachycardia. Patient noted to be tachycardic on telemetry on arrival. Labs drawn and sent, IV established, EKG and chest x-ray performed at bedside interpreted me and patient monitored on telemetry. Given initial rate and variability noted on telemetry, patient's rhythm initially thought to be atrial fibrillation. Patient's labs and imaging reassuring and case discussed with cardiology via [place] text. Cardiology reviewed EKGs and felt this is more likely atrial flutter instead. Patient was given 2 additional doses of IV metoprolol here as she does use metoprolol as an outpatient. We discussed options for disposition. Upon further discussion with the patient at bedside, she is concerned as her heart rate is not improved after additional metoprolol and she still notes dizziness with standing. Patient also concerned that her elderly at home would not be able to help her should she have worsening symptoms. Discussed with hospitalist team for additional evaluation and management. Patient with a [id number] 2 score of 3. Will defer decision regarding anticoagulation to hospitalist team and cardiology. Consultation(s): 1425: Discussed with Dr. Duran, cardiology. He reviewed EKGs and feels this is likely atrial flutter. We discussed options of disposition including outpatient management and close office follow-up versus admission for further medical management. 1508: Discussed with Dr. Leigh, [place] hospitalist team for additional evaluation and mgmt. ER Treatment Provided: See below 1440: Discussed all results and options for treatment with the patient. Diagnostics Interpreted By Me: -ECG: A-fib at 121, normal axis, normal intervals, nonspecific ST/T wave changes EKG #2 A-fib at a rate of 113, leftward axis, normal intervals, no acute ST/T wave changes -Cardiac Monitoring: An order was placed for continuous cardiac monitoring. The monitor shows a rate of 117 with a.fib rhythm. -Laboratory studies: As stated above and show below. -Imaging studies: X-ray Chest: A single view study of the chest was reviewed and was negative for cardiomegaly, focal infiltrate, effusion, pulmonary edema, or wide mediastinum. 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) Other symptoms and signs involving cognitive functions and awareness Multiple pulmonary nodules determined by computed tomography of lung Chronic kidney disease (CKD) Baseline creatinine 1.3 per chart review Acquired deviated nasal septum Sphenoidal sinusitis Asthma Nasal septal perforation Encounter for pre-operative examination LPRD (laryngopharyngeal reflux disease) Indeterminate pulmonary nodules Arthritis (Acute) Benign essential hypertension (Acute) controlled, stable per pt Breast cancer (Acute) 2009, radiation and lumpectomy Conductive hearing loss (Acute) Diverticulosis (Acute) Dysfunction of right eustachian tube (Acute) GERD without esophagitis (Acute) controlled, stable per pt Gross hematuria (Acute) Hypercalcemia (Acute) Hyperlipidemia (Acute) Idiopathic neuropathy (Acute) Lung anomaly (Acute) Migraine headache (Acute) Osteoarthritis (Acute) Peripheral neuropathy (Acute) feet and legs Postmenopausal atrophic vaginitis (Acute) Hx of replacement of aortic valve (Acute 06/27/13) Rotator cuff tendonitis (Acute) Spinal stenosis (Acute) Medical History History of radiation therapy Left breast approx. 15 yrs ago Urinary incontinence Osteoarthritis Multiple pulmonary nodules determined by computed tomography of lung Idiopathic neuropathy Hyperlipidemia Chronic kidney disease Per records, patient denies GERD (gastroesophageal reflux disease) Constipation Cough variant asthma Follows with [facility] pulmonary Aortic valvular disorder [place] [place] fibrillation [place]-op AVR (2012) Follows with [facility] cardio Bronchiectasis Per records Limb alert care status left arm restriction History of basal cell carcinoma Right eyebrow s/p excision History of left breast cancer 2009, radiation and lumpectomy Surgical History Status post left breast lumpectomy (05/08/24) Left Breast Lumpectomy(Left) - Teodoro Morales DO, FACS Hx of cholecystectomy History of surgery Right shoulder - rotator cuff S/P total hip arthroplasty Right hip replacement Status post aortic valve replacement with bioprosthetic valve [place] [place] breast biopsy (04/04/24) In office punch biopsy Breast, left, nipple, biopsy: - 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 - Estrogen receptor: Negative (0%). - Progesterone receptor: Negative (0%). - Size of DCIS: At least 3 mm History of hip surgery right hip 12/2023 H/O endoscopic sinus surgery Image guided b/l ESS and septoplasty (07/22/2022): Grade view 1, Cameron#2, ETT 7.0 at [facility] Hx of colonoscopy History of anesthesia reaction "Slow to wake" Pt reports needing "the smallest dose possible"/has strong response to anesthesia Status post trigger finger release R/L hands History of left breast biopsy malignant History of arthroscopy of right knee History of arthroscopy of left knee History of section History of basal cell carcinoma (BCC) excision History of wisdom tooth extraction History of left cataract extraction History of right cataract extraction S/P breast lumpectomy left with lymph node biopsy 2009 [place] History of shoulder surgery Left shoulder - frozen shoulder-pt denies surgical intervention History of laparoscopic cholecystectomy Family History Father , 89yo Lung cancer Mother , 91yo Respiratory infection Daughter No problems noted. Other No family history of adverse response to anesthesia Social History Smoking Status: Never smoker Second Hand Exposure: Yes (hx-both parents and 1st all smoked); Do You Dip or Chew Tobacco: No; Hx Alcohol Use: Yes Alcohol type: beer Hx Substance Use: No Preferred Language: Nigerien Communication Ability: Effective Visual Impairment: No Limitations Hearing Ability: Normal Plc Technician Required: No Beliefs That Will Affect Care: None marital status: Current Living Situation: Spouse current occupational status: retired current occupation: Worked for a [employer] How many Children do You have: 1 Other Information That Helps Us Care for You: No Feels Safe at Home: Yes Safety Concerns: Feels Safe At This Time Diet: regular caffeine: Yes (2 cups/day) during the past year weight has: remained stable Assistive Devices: Glasses and Hearing Aid - Bilateral Allergies Allergies Allergy/AdvReac Type Severity Reaction Status Date / Time iodine Allergy Mild Rash Verified 01/28/25 15:59 adhesive Allergy Rash Verified 01/28/25 15:59 pregabalin [From Lyrica] AdvReac Severe hot flashes Verified 01/28/25 15:59 prednisone AdvReac Intermediate Worsening Verified 01/28/25 15:59 Neuropathy Home Meds Home Medications Medication Instructions Recorded Confirmed atorvastatin 40 mg tablet 40 mg PO QAM #30 tabs 08/20/19 01/28/25 cyanocobalamin (vitamin B-12) 500 500 mcg PO QAM 03/08/20 01/28/25 mcg tablet (Vitamin B-12) cholecalciferol (vitamin D3) 25 1,000 units PO QAM 06/02/20 01/28/25 mcg (1,000 unit) capsule gabapentin 400 mg capsule 800 mg PO BID 05/04/21 01/28/25 vitamins A,C,Z-yosj-bdumsg 2,148 1 tab PO QAM 11/07/23 01/28/25 mcg-113 mg-45 mg-17.4 mg tablet (Eye Multivitamin) aspirin 81 mg tablet,delayed 81 mg PO QAM 01/28/25 01/28/25 release duloxetine 30 mg capsule,delayed 30 mg PO HS 01/28/25 01/28/25 release duloxetine 60 mg capsule,delayed 60 mg PO HS 01/28/25 01/28/25 release Previous Rx's Medication Instructions Recorded metoprolol succinate 25 mg 12.5 mg (1/2 x 25 mg) PO QAM #90 10/24/23 tablet,extended release 24 hr tabs Spacer for Inhaler #1 ea 01/12/24 pantoprazole 40 mg tablet,delayed 40 mg PO BID #30 tabs 12/09/24 release Results & Data (ED) Vital Signs Vital Signs - 24 hr 01/28/25 11:19 01/28/25 11:19 01/28/25 11:19 Temperature 36.7 C Temperature Source Oral Pulse Rate 100 H Pulse Rate [Apical] 100 H Pulse Rate from SpO2 Sensor Pulse Rhythm Regular Pulse Rhythm [Apical] Regular Pulse Strength Normal Pulse Strength [Apical] Normal Respiratory Rate 18 18 Respiratory Effort / Characteristics Non-Labored Spontaneous Non-Labored Spontaneous Respiratory Depth Normal Normal Respiratory Pattern Regular Regular Blood Pressure 112/83 Blood Pressure [Left Arm] 112/83 Blood Pressure Mean 92 Blood Pressure Mean [Left Arm] 92 Blood Pressure Position Semi-fowlers Blood Pressure Position [Left Arm] Semi-fowlers Pulse Oximetry 99 99 99 Oxygen Delivery Method Room Air Room Air Room Air Sepsis Recent Fever Within 48 Hours No Sepsis New/Unexplained Change in Mental Status No Sepsis Action Taken by Nursing No Action Required 01/28/25 11:28 01/28/25 11:30 01/28/25 11:37 Temperature Temperature Source Pulse Rate 121 H 112 H Pulse Rate [Apical] Pulse Rate from SpO2 Sensor 122 H Pulse Rhythm Pulse Rhythm [Apical] Pulse Strength Pulse Strength [Apical] Respiratory Rate 12 Respiratory Effort / Characteristics Respiratory Depth Respiratory Pattern Blood Pressure 106/87 Blood Pressure [Left Arm] Blood Pressure Mean 93 Blood Pressure Mean [Left Arm] Blood Pressure Position Blood Pressure Position [Left Arm] Pulse Oximetry 100 98 Oxygen Delivery Method Room Air Room Air Sepsis Recent Fever Within 48 Hours Sepsis New/Unexplained Change in Mental Status Sepsis Action Taken by Nursing 01/28/25 12:03 01/28/25 12:27 01/28/25 13:00 Temperature Temperature Source Pulse Rate 99 H 100 H 121 H Pulse Rate [Apical] Pulse Rate from SpO2 Sensor Pulse Rhythm Pulse Rhythm [Apical] Pulse Strength Pulse Strength [Apical] Respiratory Rate 12 12 14 Respiratory Effort / Characteristics Respiratory Depth Respiratory Pattern Blood Pressure 117/91 116/78 111/92 Blood Pressure [Left Arm] Blood Pressure Mean 99 90 98 Blood Pressure Mean [Left Arm] Blood Pressure Position Blood Pressure Position [Left Arm] Pulse Oximetry 97 94 Oxygen Delivery Method Room Air Room Air Sepsis Recent Fever Within 48 Hours Sepsis New/Unexplained Change in Mental Status Sepsis Action Taken by Nursing 01/28/25 13:18 01/28/25 14:00 01/28/25 14:00 Temperature Temperature Source Pulse Rate 122 H 119 H Pulse Rate [Apical] Pulse Rate from SpO2 Sensor Pulse Rhythm Pulse Rhythm [Apical] Pulse Strength Pulse Strength [Apical] Respiratory Rate 20 Respiratory Effort / Characteristics Respiratory Depth Respiratory Pattern Blood Pressure 122/88 122/88 Blood Pressure [Left Arm] Blood Pressure Mean 99 Blood Pressure Mean [Left Arm] Blood Pressure Position Blood Pressure Position [Left Arm] Pulse Oximetry 99 Oxygen Delivery Method Room Air Sepsis Recent Fever Within 48 Hours Sepsis New/Unexplained Change in Mental Status Sepsis Action Taken by Nursing 01/28/25 14:06 01/28/25 14:14 01/28/25 14:21 Temperature Temperature Source Pulse Rate 119 H 118 H Pulse Rate [Apical] Pulse Rate from SpO2 Sensor Pulse Rhythm Pulse Rhythm [Apical] Pulse Strength Pulse Strength [Apical] Respiratory Rate 20 18 Respiratory Effort / Characteristics Respiratory Depth Respiratory Pattern Blood Pressure 119/86 Blood Pressure [Left Arm] Blood Pressure Mean 98 Blood Pressure Mean [Left Arm] Blood Pressure Position Blood Pressure Position [Left Arm] Pulse Oximetry 98 Oxygen Delivery Method Room Air Sepsis Recent Fever Within 48 Hours Sepsis New/Unexplained Change in Mental Status Sepsis Action Taken by Nursing 01/28/25 14:22 01/28/25 14:30 01/28/25 14:52 Temperature Temperature Source Pulse Rate 117 H 117 H 109 H Pulse Rate [Apical] Pulse Rate from SpO2 Sensor 116 H Pulse Rhythm Pulse Rhythm [Apical] Pulse Strength Pulse Strength [Apical] Respiratory Rate 18 Respiratory Effort / Characteristics Respiratory Depth Respiratory Pattern Blood Pressure 119/86 112/85 123/89 Blood Pressure [Left Arm] Blood Pressure Mean 94 Blood Pressure Mean [Left Arm] Blood Pressure Position Blood Pressure Position [Left Arm] Pulse Oximetry 99 Oxygen Delivery Method Room Air Sepsis Recent Fever Within 48 Hours Sepsis New/Unexplained Change in Mental Status Sepsis Action Taken by Nursing 01/28/25 14:52 01/28/25 14:57 01/28/25 15:07 Temperature Temperature Source Pulse Rate 93 H 110 H Pulse Rate [Apical] Pulse Rate from SpO2 Sensor Pulse Rhythm Pulse Rhythm [Apical] Pulse Strength Pulse Strength [Apical] Respiratory Rate 16 Respiratory Effort / Characteristics Respiratory Depth Respiratory Pattern Blood Pressure 123/89 117/83 Blood Pressure [Left Arm] Blood Pressure Mean 95 Blood Pressure Mean [Left Arm] Blood Pressure Position Blood Pressure Position [Left Arm] Pulse Oximetry Oxygen Delivery Method Sepsis Recent Fever Within 48 Hours Sepsis New/Unexplained Change in Mental Status Sepsis Action Taken by Nursing 01/28/25 15:12 01/28/25 15:33 01/28/25 15:47 Temperature Temperature Source Pulse Rate 116 H 117 H 94 H Pulse Rate [Apical] Pulse Rate from SpO2 Sensor 117 H Pulse Rhythm Pulse Rhythm [Apical] Pulse Strength Pulse Strength [Apical] Respiratory Rate 18 12 Respiratory Effort / Characteristics Respiratory Depth Respiratory Pattern Blood Pressure 117/83 117/84 Blood Pressure [Left Arm] Blood Pressure Mean 94 95 Blood Pressure Mean [Left Arm] Blood Pressure Position Blood Pressure Position [Left Arm] Pulse Oximetry 97 95 Oxygen Delivery Method Room Air Room Air Sepsis Recent Fever Within 48 Hours Sepsis New/Unexplained Change in Mental Status Sepsis Action Taken by Nursing 01/28/25 16:00 01/28/25 16:09 Temperature Temperature Source Pulse Rate 96 H Pulse Rate [Apical] Pulse Rate from SpO2 Sensor Pulse Rhythm Pulse Rhythm [Apical] Pulse Strength Pulse Strength [Apical] Respiratory Rate 20 Respiratory Effort / Characteristics Respiratory Depth Respiratory Pattern Blood Pressure 101/87 Blood Pressure [Left Arm] Blood Pressure Mean 93 Blood Pressure Mean [Left Arm] Blood Pressure Position Blood Pressure Position [Left Arm] Pulse Oximetry 94 Oxygen Delivery Method Room Air Sepsis Recent Fever Within 48 Hours Sepsis New/Unexplained Change in Mental Status Sepsis Action Taken by Nursing Laboratory Data 01/28/25 11:20 01/28/25 11:20 Lab Results 01/28/25 Range/Units 11:20 WBC 4.93 (4.8-10.8) K/ul RBC 4.17 L (4.20-5.40) M/uL Hgb 11.7 L (12.0-16.0) g/dl Hct 36.6 L (37.0-47.0) % MCV 87.8 (80.0-100.0) fL MCH 28.1 (25.0-34.0) pg MCHC 32.0 (32.0-36.0) g/dL RDW Std Deviation 44.7 (36.4-46.3) fL RDW Coeff of Quintin 13.9 (11.5-14.5) % Plt Count 204 (130-400) K/uL MPV 10.8 (9.4-12.4) fL Immature Gran % (Auto) 0.2 % Neut % (Auto) 55.5 % Lymph % (Auto) 26.8 % Wilkin % (Auto) 11.8 % Eos % (Auto) 4.9 % Baso % (Auto) 0.8 % Neut # (Auto) 2.74 (1.40-6.50) K/uL Lymph # (Auto) 1.32 (1.20-3.40) K/uL Wilkin # (Auto) 0.58 (0.11-0.59) K/uL Eos # (Auto) 0.24 (0.00-0.50) K/uL Baso # (Auto) 0.04 (0.00-0.20) K/uL Immature Gran # (Auto) 0.01 (0.01-0.20) K/uL PT 10.8 (9.0-12.0) Seconds INR 1.0 (0.9-1.1) APTT 25 (21-31) Seconds PTT Ratio 0.9 D-Dimer 450 (0-500) ug/L FEU Sodium 140 (136-145) mmol/L Potassium 4.2 (3.5-5.1) mmol/L Chloride 107 (98-107) mmol/L Carbon Dioxide 29 (21-32) mmol/L Anion Gap 4 (3-11) BUN 24 H (6-23) mg/dl Creatinine 1.29 H (0.6-1.2) mg/dl Est Cr Clr Drug Dosing 29.3 ml/min eGFR 39.92 BUN/Creatinine Ratio 18.6 (10-20) Glucose 75 (70-99(Fasting)) mg/dl Calcium 9.4 (8.6-10.3) mg/dl Magnesium 2.1 (1.7-2.4) mg/dl Total Bilirubin 0.5 (0.2-1.0) mg/dl AST 17 (13-39) U/L ALT 13 (7-52) U/L Alkaline Phosphatase 89 (34-104) U/L Troponin I High Sens 6.8 (0-14) pg/ml Total Protein 6.5 (6.0-8.3) gm/dl Albumin 4.2 (3.4-5.0) gm/dl Globulin 2.3 L (2.5-4.0) gm/dl Albumin/Globulin Ratio 1.8 (0.9-2) TSH 2.491 (0.300-4.500) uIu/ml Administered Medications Discontinued Medications Sodium Chloride (Nss) 500 mls @ 999 mls/hr IV .Q31M ONE Stop: 01/28/25 12:57 Last Infusion: 01/28/25 14:22 Dose: Infused Documented By: Admin: 01/28/25 12:30 Dose: 999 mls/hr Documented By: REED Metoprolol Tartrate (Metoprolol Tartrate 1 Mg/Ml Vial) 5 mg IV NOW STA Stop: 01/28/25 13:40 Last Admin: 01/28/25 14:00 Dose: 5 mg Documented By: Metoprolol Tartrate (Metoprolol Tartrate 1 Mg/Ml Vial) 5 mg IV NOW STA Stop: 01/28/25 14:45 Last Admin: 01/28/25 14:52 Dose: 5 mg Documented By: Imaging Data Radiologist's Impression: Chest X-Ray 01/28/25 11:27 XR chest 1V portable CLINICAL HISTORY: Chest pain, nonspecific COMPARISON STUDY: 09/16/2024 FINDINGS: Stable average. Stable cardiomegaly without pulmonary vascular congestion. No effusion, consolidation, or pneumothorax. IMPRESSION: No acute findings. ACT 112: Negative or not required by law. Electronically signed by: Teodoro Carlisle M.D. 01/28/2025 11:50 AM Discharge Plan Visit Data Chief Complaint: Tachycardia Stated Complaint: Tachycardia ED Provider: Shikha Mclaughlin Discharge Problem: Atrial flutter with rapid ventricular response, Postural dizziness Patient Disposition: Admitted As Inpatient Discharge Instructions Interventions: ED Discharge Assessment Last Done: 01/28/25 17:59
[2025-01-28 12:59] LABS: D Dimer 450 ug/L FEU (0-500)
[2025-01-28 13:06] LABS: Magnesium 2.1 mg/dl (1.7-2.4)
[2025-01-28 13:21] LABS: Thyroid Stimulating Hormone 2.491 uIu/ml (0.300-4.500)
[2025-01-28] MEDS: METOPROLOL TARTRATE 1 MG/ML VIAL IV STA ×2 (14:00→14:52)
--- NOTE | 2025-01-28 15:06 | History & Physical Report ---
Date of Service January 28, 2025 Assessment & Plan (1) Atrial flutter with rapid ventricular response: (2) Chronic kidney disease (CKD): (3) Benign essential hypertension: (4) Hx of replacement of aortic valve: (5) Cough variant asthma: Plan 89-year-old woman with a history of bioprosthetic atrial valve replacement in 2012 who was admitted with rapid atrial flutter, new onset I reviewed her EKG tracings and tele - one EKG with narrow complex tachycardia no p-waves visible, the other looks like rapid afib, tele consistent with aflutter with variable block Echo 11/2024 with EF 55-60%, well seated AVR with normal gradient # atrial flutter with rapid ventricular rateexplains her increased lightheadedness on standing for the past several weeks and malaise. slight bibasilar crackles on exam but appears euvolemic - rates improved after 2 doses of IV metoprolol in the ED - potassium 4.2 and mag 2.1 - AM BMP - start metoprolol 50 mg twice daily tonight (home dose was 12.5 bid) - hold aspirin and start apixaban - discussed risks and benefits with the patient and her daughter at bedside - she had an echo less than 2 months ago I do not think we need to repeat at this time - TSH was normal, low suspicion for sleep apnea - consulted cardiology Dr. Duran - ED discussed with him # bioprosthetic AVR - normal gradient last Echo # CKD 3b - Cr stable at 1.3, avoid nephrotoxins # cough variant asthma - seen by [facility] [place] pulmonary in the past. Also on PPI for GERD #DVT ppx - apixaban History of Present Illness Chief Complaint: lightheadedness when standing up, sent in by primary care doctor for tachycardia Primary Care Provider: Baldomero Holder MD 89 y/o woman who Has a history of bioprosthetic aortic valve replacement in 2012, very healthy and lives independently who was sent in from her primary care doctor's office with tachycardia. She notices that for up to the past month she has been more lightheaded when standing up. Generally she has not felt very well for the past month. She has not noticed any palpitations or tachycardia herself, she has not had any chest pain, she has not had any dyspnea but does have a chronic dry cough for many years which no one has been able to explain. she usually takes low-dose metoprolol and an aspirin and follows with Dr. Hilario. She had an echocardiogram November of this year her EF was 55-60% and the AVR was functionally very well with a normal gradient she had 1 episode of transient atrial fibrillation following a surgery in the past no history of sleep apnea or snoring, normal TSH recently Lives with , mild cognitive impairment, does not use a walker, lives [place] no stairs to enter stays on 1 level, no issues with bleeding in the past no melena or bright red blood per rectum ED evaluation notable for her atrial flutter, she has been tachycardic but rates improved after metoprolol 5 mg IV x 2 doses Allergies Allergy/AdvReac Type Severity Reaction Status Date / Time iodine Allergy Mild Rash Verified 01/28/25 15:59 adhesive Allergy Rash Verified 01/28/25 15:59 pregabalin [From Lyrica] AdvReac Severe hot flashes Verified 01/28/25 15:59 prednisone AdvReac Intermediate Worsening Verified 01/28/25 15:59 Neuropathy Home Medications Medication Instructions Recorded Confirmed Type atorvastatin 40 mg tablet 40 mg PO QAM #30 tabs 08/20/19 01/28/25 History cyanocobalamin (vitamin B-12) 500 500 mcg PO QAM 03/08/20 01/28/25 History mcg tablet (Vitamin B-12) cholecalciferol (vitamin D3) 25 1,000 units PO QAM 06/02/20 01/28/25 History mcg (1,000 unit) capsule gabapentin 400 mg capsule 800 mg PO BID 05/04/21 01/28/25 History metoprolol succinate 25 mg 12.5 mg (1/2 x 25 mg) PO QAM #90 10/24/23 01/28/25 Rx tablet,extended release 24 hr tabs vitamins A,C,I-fryp-vuujib 2,148 1 tab PO QAM 11/07/23 01/28/25 History mcg-113 mg-45 mg-17.4 mg tablet (Eye Multivitamin) Spacer for Inhaler #1 ea 01/12/24 12/30/24 Rx pantoprazole 40 mg tablet,delayed 40 mg PO BID #30 tabs 12/09/24 01/28/25 Rx release aspirin 81 mg tablet,delayed 81 mg PO QAM 01/28/25 01/28/25 History release duloxetine 30 mg capsule,delayed 30 mg PO HS 01/28/25 01/28/25 History release duloxetine 60 mg capsule,delayed 60 mg PO HS 01/28/25 01/28/25 History release Past Med/Surg History Problem List (Updated 01/28/25 @ 17:17 by Jessenia Leigh MD) Atrial flutter with rapid ventricular response Postural dizziness (Acute) Atrial fibrillation with rapid ventricular response (Acute) Mild cognitive impairment 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) Other symptoms and signs involving cognitive functions and awareness Multiple pulmonary nodules determined by computed tomography of lung Chronic kidney disease (CKD) Baseline creatinine 1.3 per chart review Acquired deviated nasal septum Sphenoidal sinusitis Asthma Nasal septal perforation Encounter for pre-operative examination LPRD (laryngopharyngeal reflux disease) Indeterminate pulmonary nodules Arthritis (Acute) Benign essential hypertension (Acute) controlled, stable per pt Breast cancer (Acute) 2009, radiation and lumpectomy Conductive hearing loss (Acute) Diverticulosis (Acute) Dysfunction of right eustachian tube (Acute) GERD without esophagitis (Acute) controlled, stable per pt Gross hematuria (Acute) Hypercalcemia (Acute) Hyperlipidemia (Acute) Idiopathic neuropathy (Acute) Lung anomaly (Acute) Migraine headache (Acute) Osteoarthritis (Acute) Peripheral neuropathy (Acute) feet and legs Postmenopausal atrophic vaginitis (Acute) Hx of replacement of aortic valve (Acute 06/27/13) Rotator cuff tendonitis (Acute) Spinal stenosis (Acute) Medical History History of radiation therapy Left breast approx. 15 yrs ago Urinary incontinence Osteoarthritis Multiple pulmonary nodules determined by computed tomography of lung Idiopathic neuropathy Hyperlipidemia Chronic kidney disease Per records, patient denies GERD (gastroesophageal reflux disease) Constipation Cough variant asthma Follows with [facility] pulmonary Aortic valvular disorder Bioprosthetic AVR, 2012 ([facility] [place]) Atrial fibrillation Post-op AVR (2012) Follows with [facility] cardio Bronchiectasis Per records Limb alert care status left arm restriction History of basal cell carcinoma Right eyebrow s/p excision History of left breast cancer 2009, radiation and lumpectomy Surgical History Status post left breast lumpectomy (05/08/24) Left Breast Lumpectomy(Left) - Teodoro Morales, DO, FACS Hx of cholecystectomy History of surgery Right shoulder - rotator cuff S/P total hip arthroplasty Right hip replacement Status post aortic valve replacement with bioprosthetic valve Bioprosthetic AVR, 2012 (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 - Estrogen receptor: Negative (0%). - Progesterone receptor: Negative (0%). - Size of DCIS: At least 3 mm History of hip surgery right hip 12/2023 H/O endoscopic sinus surgery Image guided b/l ESS and septoplasty (07/22/2022): Grade view 1, Cameron#2, ETT 7.0 at [facility] Hx of colonoscopy History of anesthesia reaction "Slow to wake" Pt reports needing "the smallest dose possible"/has strong response to anesthesia Status post trigger finger release R/L hands History of left breast biopsy malignant History of arthroscopy of right knee History of arthroscopy of left knee History of section History of basal cell carcinoma (BCC) excision History of wisdom tooth extraction History of left cataract extraction History of right cataract extraction S/P breast lumpectomy left with lymph node biopsy 2009 [place] History of shoulder surgery Left shoulder - frozen shoulder-pt denies surgical intervention History of laparoscopic cholecystectomy Family History Father , 89yo Lung cancer Mother , 91yo Respiratory infection Daughter No problems noted. 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 Beliefs That Will Affect Care: None marital status: Current Living Situation: Spouse current occupational status: retired current occupation: Worked for a [employer] How many Children do You have: 1 Feels Safe at Home: Yes Diet: regular caffeine: Yes (2 cups/day) during the past year weight has: remained stable Assistive Devices: Glasses Review of Systems Review of Systems: All systems reviewed & are unremarkable except as noted in HPI & below Physical Exam Physical Exam: PHYSICAL EXAMINATION Last 24h vital signs reviewed, see documentation in flowsheet General: comfortable appearing, no distress, sitting up on gurney very alert HEENT: Normocephalic, atraumatic, pupils round and equal, sclerae anicteric, no conjunctival injection, dry mucus membranes Lungs: Normal respiratory effort. Clear to auscultation bilaterally except for some very mild bibasilar crackles, no wheezing, dry cough Heart: tachycardic,Regular rate and rhythm, no murmurs. No JVD Abdomen: Soft, nontender, nondistended. Bowel sounds present. Extremities: Warm, dry, well-perfused. No extremity edema. Neuro: Alert and oriented x 4, face symmetric, moves 4 extremities well Psych: Normal affect and behavior Results & Data Results & Data Vital Signs (Past 12 Hours) Vital Signs Temp Pulse Pulse Resp BP BP Pulse Ox 01/28/25 14:52 109 H 123/89 01/28/25 14:22 117 H 119/86 01/28/25 14:21 118 H 18 98 01/28/25 14:14 119/86 01/28/25 14:06 119 H 20 01/28/25 14:00 122/88 01/28/25 14:00 119 H 122/88 01/28/25 13:18 122 H 20 99 01/28/25 13:00 121 H 14 111/92 01/28/25 12:27 100 H 12 116/78 94 01/28/25 12:03 99 H 12 117/91 97 01/28/25 11:37 112 H 01/28/25 11:30 121 H 12 106/87 98 01/28/25 11:28 100 01/28/25 11:19 100 H 18 112/83 99 01/28/25 11:19 99 01/28/25 11:19 36.7 C 100 H 18 112/83 99 O2 Del Method 01/28/25 14:52 01/28/25 14:22 01/28/25 14:21 Room Air 01/28/25 14:14 01/28/25 14:06 01/28/25 14:00 01/28/25 14:00 01/28/25 13:18 Room Air 01/28/25 13:00 01/28/25 12:27 Room Air 01/28/25 12:03 Room Air 01/28/25 11:37 01/28/25 11:30 Room Air 01/28/25 11:28 Room Air 01/28/25 11:19 Room Air 01/28/25 11:19 Room Air 01/28/25 11:19 Room Air Laboratory Results 01/28/25 Range/Units 11:20 WBC 4.93 (4.8-10.8) K/ul RBC 4.17 L (4.20-5.40) M/uL Hgb 11.7 L (12.0-16.0) g/dl Hct 36.6 L (37.0-47.0) % MCV 87.8 (80.0-100.0) fL MCH 28.1 (25.0-34.0) pg MCHC 32.0 (32.0-36.0) g/dL RDW Std Deviation 44.7 (36.4-46.3) fL RDW Coeff of Quintin 13.9 (11.5-14.5) % Plt Count 204 (130-400) K/uL MPV 10.8 (9.4-12.4) fL Immature Gran % (Auto) 0.2 % Neut % (Auto) 55.5 % Lymph % (Auto) 26.8 % [place] % (Auto) 11.8 % Eos % (Auto) 4.9 % Baso % (Auto) 0.8 % Neut # (Auto) 2.74 (1.40-6.50) K/uL Lymph # (Auto) 1.32 (1.20-3.40) K/uL [place] # (Auto) 0.58 (0.11-0.59) K/uL Eos # (Auto) 0.24 (0.00-0.50) K/uL Baso # (Auto) 0.04 (0.00-0.20) K/uL Immature Gran # (Auto) 0.01 (0.01-0.20) K/uL PT 10.8 (9.0-12.0) Seconds INR 1.0 (0.9-1.1) APTT 25 (21-31) Seconds PTT Ratio 0.9 D-Dimer 450 (0-500) ug/L FEU Sodium 140 (136-145) mmol/L Potassium 4.2 (3.5-5.1) mmol/L Chloride 107 (98-107) mmol/L Carbon Dioxide 29 (21-32) mmol/L Anion Gap 4 (3-11) BUN 24 H (6-23) mg/dl Creatinine 1.29 H (0.6-1.2) mg/dl Est Cr Clr Drug Dosing 29.3 ml/min eGFR 39.92 BUN/Creatinine Ratio 18.6 (10-20) Glucose 75 (70-99(Fasting)) mg/dl Calcium 9.4 (8.6-10.3) mg/dl Magnesium 2.1 (1.7-2.4) mg/dl Total Bilirubin 0.5 (0.2-1.0) mg/dl AST 17 (13-39) U/L ALT 13 (7-52) U/L Alkaline Phosphatase 89 (34-104) U/L Troponin I High Sens 6.8 (0-14) pg/ml Total Protein 6.5 (6.0-8.3) gm/dl Albumin 4.2 (3.4-5.0) gm/dl Globulin 2.3 L (2.5-4.0) gm/dl Albumin/Globulin Ratio 1.8 (0.9-2) TSH 2.491 (0.300-4.500) uIu/ml Diagnostic Findings Chest X-Ray 01/28/25 11:27 XR chest 1V portable CLINICAL HISTORY: Chest pain, nonspecific COMPARISON STUDY: 09/16/2024 FINDINGS: Stable average. Stable cardiomegaly without pulmonary vascular congestion. No effusion, consolidation, or pneumothorax. IMPRESSION: No acute findings. ACT 112: Negative or not required by law. Electronically signed by: Teodoro Carlisle M.D. 01/28/2025 11:50 AM PG Care Time/CCT Total # of Minutes Spent Total Time Spent with Patient: Total time spent is greater than 50% in coordination of care (as documented) at patient's floor/unit and/or counseling patient: Coding Level of Care Code 37609 INT INP/OBS CARE 3/75MIN Diagnoses Atrial flutter with rapid ventricular response I48.92 Chronic kidney disease (CKD) N18.9 Benign essential hypertension I10 Hx of replacement of aortic valve Z95.2 Cough variant asthma J45.991
[2025-01-28] MEDS ORDERED: POLYETHYLENE (MIRALAX) 17 GM PACK PO PRN (17:04)
[2025-01-28] MEDS ORDERED: ALUMINUM/MAGNESIUM SUSP 30 ML UDC PO PRN (17:04)
[2025-01-28] MEDS ORDERED: ONDANSETRON INJ 2 MG/ML 2 ML VIAL IV PRN (17:04)
[2025-01-28] MEDS ORDERED: MAGNESIUM HYDROXIDE SUSP 30 ML UDC PO PRN (17:04)
[2025-01-28] MEDS: APIXABAN 5 MG TABLET PO SCH (20:09)
[2025-01-28] MEDS: METOPROLOL TARTRATE 50 MG TAB PO SCH (20:09)
[2025-01-28] MEDS: PANTOprazole 40 MG TAB PO SCH (20:32)
[2025-01-28] MEDS: DULoxetine HCL 30 MG CAP PO SCH (20:32)
[2025-01-28] MEDS: GABAPENTIN 400 MG CAP PO SCH (20:32)
--- NOTE | 2025-01-29 05:31 | Electrocardiogram Report ---
Test Reason : Blood Pressure : */* mmHG Vent. Rate : 121 BPM Atrial Rate : * BPM P-R Int : * ms QRS Dur : 84 ms QT Int : 320 ms P-R-T Axes : * -31 72 degrees QTcB Int : 454 ms Possible Accelerated Junctional rhythm Left axis deviation Abnormal ECG When compared with ECG of 16-Sep-2024 22:18, Junctional rhythm has replaced Sinus rhythm Vent. rate has increased by 65 bpm Confirmed by Kemal Duran ([id number]) on 01/29/2025 5:31:23 AM Referred By: Confirmed By: Kemal Duran
--- NOTE | 2025-01-29 05:32 | Electrocardiogram Report ---
Test Reason : Blood Pressure : */* mmHG Vent. Rate : 113 BPM Atrial Rate : * BPM P-R Int : * ms QRS Dur : 90 ms QT Int : 346 ms P-R-T Axes : * -36 35 degrees QTcB Int : 474 ms Atrial flutter with rapid ventricular response Left axis deviation Low voltage QRS Abnormal ECG When compared with ECG of 28-Jan-2025 11:14, Atrial flutter waves are now visualized Confirmed by Kemal Duran ([id number]) on 01/29/2025 5:32:18 AM Referred By: REFERRED SELF Confirmed By: Kemal Duran
[2025-01-29 06:20] LABS: Hematocrit (blood only) 35.5 % (37.0-47.0); Hemoglobin 11.5 g/dl (12.0-16.0); Mean Corpuscular Hemoglobin 28.3 pg (25.0-34.0); Mean Corpuscular Hgb Conc 32.4 g/dL (32.0-36.0); Mean Corpuscular Volume 87.2 fL (80.0-100.0); Mean Platelet Volume 10.9 fL (9.4-12.4); Platelet Count 202 K/uL (130-400); RDW Coefficient of Variation 13.8 % (11.5-14.5); RDW Standard Deviation 43.7 fL (36.4-46.3); Red Blood Count 4.07 M/uL (4.20-5.40)
[2025-01-29 06:45] LABS: BUN Creatinine Ratio 16.8 (10-20); Calcium 9.3 mg/dl (8.6-10.3); Creatinine Clr Calc Pharmacy 27.4 ml/min; Potassium 4.6 mmol/L (3.5-5.1)
[2025-01-29] MEDS: ATORVASTATIN 40 MG TAB PO SCH (08:35)
[2025-01-29] MEDS: LACTATED RINGER'S 500 ML IV ONE (09:11)
--- NOTE | 2025-01-29 11:43 | Hospitalist Progress Note ---
Date of Service January 29, 2025 Assessment & Plan (1) Atrial flutter with rapid ventricular response: Plan: 89-year-old female with a history of bioprosthetic valve who presented with episodes of lightheadedness/dizziness for several weeks and increased fatigue and who was found to have atrial flutter with RVR on admission. Improving but not yet adequately controlled rates following initiation of metoprolol. Atrial flutter with RVR Improved but not yet with adequate rate control, rates 1001 20 in the morning. Morning dose was held for hypotension Metoprolol 50 mg tartrate twice daily was continued on admission following IV Lopressor pushes with some rate control, although borderline hypotensive Digoxin limited by mild HERNESTO, CKD Amiodarone limited by recent initiation of anticoagulation Cardiology consulted Echo less than 2 months ago but repeat was initially deferred Due to borderline hypotension 1 metoprolol had been held. metoprolol was dose decreased to 25 mg tartrate twice daily and dose ordered and given slightly before lunch continue to follow for rate control/BP tolerance Bioprosthetic AVR noted. Eliquis continued 5 mg twice daily. Does not meet criteria for dose reduction at this time. CKD 3B Baseline creatinine around 1.21.3 Elevated at 1.49. Slightly volume contracted on assessment 500 cc maintenance supplement given, trend daily Asthma No acute exacerbation GERD: PPI continued DVT prophylaxis: Apixaban continued Diet: Heart healthy Disposition: PCU CODE STATUS: Full code (2) Chronic kidney disease (CKD): (3) Benign essential hypertension: (4) Hx of replacement of aortic valve: (5) Cough variant asthma: Admission and Anticipated Discharge Date Admission Date: January 28, 2025 Subjective Seen at the bedside. Reports lightheadedness/dizziness have overall improved. Has to use the bathroom at time visit otherwise no acute questions or concerns. Denies chest pain/chest pressure. Denies palpitations. Denies dyspnea. Denies bleeding.Overnight heart rate trend intermittently with rates around 80s, but overall inadequately controlled ranging 1001 20 Physical Exam Physical Exam: General: A&Ox3. NAD. Cooperative. HEENT: Atraumatic, normocephalic. Vision and hearing grossly intact Pulm: CTAB A&P. -wheezes, -rales, -rhonchi. Symmetrical chest rise. No increase in work of breathing. No respiratory distress. Cardiac: Irregularly irregular. No JVD. Extremities: Warm, dry. Without edema Results & Data Results & Data Vital Signs (Past 12 Hours) Vital Signs Temp Pulse Pulse Resp BP Pulse Ox O2 Del Method 01/29/25 11:10 36.7 C 118 H 20 101/70 99 Room Air 01/29/25 10:04 101/95 01/29/25 09:54 114 H 01/29/25 08:45 95/61 L 01/29/25 08:07 36.5 C 116 H 20 92/56 L 99 Room Air 01/29/25 03:05 36.8 C 89 18 115/68 94 Room Air PG Care Time/CCT Total # of Minutes Spent Total Time Spent with Patient: Total time spent is greater than 50% in coordination of care (as documented) at patient's floor/unit and/or counseling patient: Coding Level of Care Code 93535 SUB INP/OBS CARE 3/50MIN Diagnoses Atrial flutter with rapid ventricular response I48.92 Chronic kidney disease (CKD) N18.9 Benign essential hypertension I10 Hx of replacement of aortic valve Z95.2 Cough variant asthma J45.991
[2025-01-29] MEDS: METOPROLOL TARTRATE 25 MG TAB PO ONE (11:58)
--- NOTE | 2025-01-29 12:08 | Cardiology Consultation ---
Date of Consultation January 29, 2025 Assessment & Plan (1) Atrial flutter with rapid ventricular response: (2) Hx of replacement of aortic valve: (3) Benign essential hypertension: (4) Anticoagulant long-term use: Plan ASSESSMENT/PLAN: 1. Atrial flutter: Seems to be asymptomatic. Heart rate has improved with beta-jesse but she did not receive any rate controlling medication earlier this morning until nearly noon. Recommend metoprolol 25 mg twice daily for now and it can be further titrated as necessary. We discussed the diagnosis in detail. We also discussed other treatment strategies such as cardioversion, rhythm control, ablation. She prefers more conservative measures at this time which seems reasonable as her heart rate is not that unreasonable even before titration of beta-jesse. Onset uncertain, but would have to assume greater than 48 hours. If cardioversion to be done before 4 weeks of anticoagulation therapy, would recommend transesophageal echo. Rate control strategy as per discussion today as she has already shown improved heart rate with beta-jesse. Recommend anticoagulation for stroke risk reduction. She is agreeable. Eliquis 5 mg twice daily for now but if her creatinine increases greater than 1.5, would reduce to 2.5 mg twice daily. Monitor CBC and renal function closely. 2. Bioprosthetic aortic valve: Appropriately functioning on 12/10/2024 outpatient echo per report. SBE prophylaxis for dental procedures. 3. Hypertension: Blood pressure has been reasonably controlled. Rate controlling medication has been adjusted since presentation. 4. Disposition: Recommend close follow-up in the outpatient setting with Dr. Hilario for further titration of rate controlling medication or transition to more aggressive therapy if needed. Will request appointment through the cardiology office. Plan of care communicated with primary hospitalist, Dr. Garnett. Thank you for allowing me to participate in the care of your patient. Please call for any other questions or concerns. Sincerely, Maxime Duran M.D. History of Present Illness Reason for Consultation: atrial flutter Requesting Physician: Dr. Jessenia Leigh MD Attending Physician: Patrick Garnett MD History of Present Illness Mrs. Brady is a very pleasant 89-year-old female with a history significant for bioprosthetic aortic valve (May 2013), hypertension, dyslipidemia, CKD and left-sided breast cancer (lumpectomy and XRT). Her primary or first assist registered nurse is Dr. Hilario. She presented on 01/28/2025 after tachycardia was noted by her PCP in the 120s bpm. She denies chest pain, shortness of breath, palpitations, syncope, or near syncope. In the ER, she was noted to be in atrial flutter and was therefore admitted. She has chronic cough which has been evaluated over the past several years by many providers per her report and she was told that it was due to allergies. She denies sleep apnea. She denies any significant alcohol consumption. She walks and rides a stationary bicycle over the winter months for exercise, typically 3 or 4 days/week for 40 to 50 minutes. Last week, she exercised for the first time in some time and noted that she felt more tired. She does not check her heart rate at home. She typically takes metoprolol 12.5 mg at home and while here, received a dose of 50 mg metoprolol on 01/28/2025 and then a dose of 25 mg at 11:58 AM this morning. She denies a history of melena, hematochezia, hematuria, or other bleeding. Review of systems: As above. Family history: Noncontributory. Social history: She denies alcohol, tobacco, or drug abuse. She is and lives at home with her . Her first at the age of 41. She has 1 daughter with her first who lives in [facility]. She is originally from [place]. She was unaccompanied. Allergies Allergy/AdvReac Type Severity Reaction Status Date / Time iodine Allergy Mild Rash Verified 01/28/25 15:59 adhesive Allergy Rash Verified 01/28/25 15:59 pregabalin [From Lyrica] AdvReac Severe hot flashes Verified 01/28/25 15:59 prednisone AdvReac Intermediate Worsening Verified 01/28/25 15:59 Neuropathy Home Medications Medication Instructions Recorded Confirmed Type atorvastatin 40 mg tablet 40 mg PO QAM #30 tabs 08/20/19 01/28/25 History cyanocobalamin (vitamin B-12) 500 500 mcg PO QAM 03/08/20 01/28/25 History mcg tablet (Vitamin B-12) cholecalciferol (vitamin D3) 25 1,000 units PO QAM 06/02/20 01/28/25 History mcg (1,000 unit) capsule gabapentin 400 mg capsule 800 mg PO BID 05/04/21 01/28/25 History metoprolol succinate 25 mg 12.5 mg (1/2 x 25 mg) PO QAM #90 10/24/23 01/28/25 Rx tablet,extended release 24 hr tabs vitamins A,C,E-qzsw-ncpvgs 2,148 1 tab PO QAM 11/07/23 01/28/25 History mcg-113 mg-45 mg-17.4 mg tablet (Eye Multivitamin) Spacer for Inhaler #1 ea 01/12/24 12/30/24 Rx pantoprazole 40 mg tablet,delayed 40 mg PO BID #30 tabs 12/09/24 01/28/25 Rx release aspirin 81 mg tablet,delayed 81 mg PO QAM 01/28/25 01/28/25 History release duloxetine 30 mg capsule,delayed 30 mg PO HS 01/28/25 01/28/25 History release duloxetine 60 mg capsule,delayed 60 mg PO HS 01/28/25 01/28/25 History release Problem List (Updated 01/29/25 @ 12:20 by Kemal Duran MD) Anticoagulant long-term use Atrial flutter with rapid ventricular response (Acute) Postural dizziness (Acute) Mild cognitive impairment 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) Other symptoms and signs involving cognitive functions and awareness Multiple pulmonary nodules determined by computed tomography of lung Chronic kidney disease (CKD) Baseline creatinine 1.3 per chart review Acquired deviated nasal septum Sphenoidal sinusitis Asthma Nasal septal perforation Encounter for pre-operative examination LPRD (laryngopharyngeal reflux disease) Indeterminate pulmonary nodules Arthritis (Acute) Benign essential hypertension (Acute) controlled, stable per pt Breast cancer (Acute) 2010, radiation and lumpectomy Conductive hearing loss (Acute) Diverticulosis (Acute) Dysfunction of right eustachian tube (Acute) GERD without esophagitis (Acute) controlled, stable per pt Gross hematuria (Acute) Hypercalcemia (Acute) Hyperlipidemia (Acute) Idiopathic neuropathy (Acute) Lung anomaly (Acute) Migraine headache (Acute) Osteoarthritis (Acute) Peripheral neuropathy (Acute) feet and legs Postmenopausal atrophic vaginitis (Acute) Hx of replacement of aortic valve (Acute 06/27/13) Rotator cuff tendonitis (Acute) Spinal stenosis (Acute) Patient History Medical History History of radiation therapy Left breast approx. 15 yrs ago Urinary incontinence Osteoarthritis Multiple pulmonary nodules determined by computed tomography of lung Idiopathic neuropathy Hyperlipidemia Chronic kidney disease Per records, patient denies GERD (gastroesophageal reflux disease) Constipation Cough variant asthma Follows with [facility] pulmonary Aortic valvular disorder [place]op[place] [place] Atrial fibrillation Post-op AVR (2012) Follows with [facility] cardio Bronchiectasis Per records Limb alert care status left arm restriction History of basal cell carcinoma Right eyebrow s/p excision History of left breast cancer 2009, radiation and lumpectomy Surgical History Status post left breast lumpectomy (05/08/24) Left Breast Lumpectomy(Left) - Teodoro Morales, DO, FACS Hx of cholecystectomy History of surgery Right shoulder - rotator cuff S/P total hip arthroplasty Right hip replacement Status post aortic valve replacement with bioprosthetic valve Bioprosthetic AVR, 2012 [place] [place] H/O breast biopsy (04/04/24) In office punch biopsy Breast, left, nipple, biopsy: - 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 - Estrogen receptor: Negative (0%). - Progesterone receptor: Negative (0%). - Size of DCIS: At least 3 mm History of hip surgery right hip 12/2023 H/O endoscopic sinus surgery Image guided b/l ESS and septoplasty (07/22/2022): Grade view 1, Cameron#2, ETT 7.0 at [facility] Hx of colonoscopy History of anesthesia reaction "Slow to wake" Pt reports needing "the smallest dose possible"/has strong response to anesthesia Status post trigger finger release R/L hands History of left breast biopsy malignant History of arthroscopy of right knee History of arthroscopy of left knee History of section History of basal cell carcinoma (BCC) excision History of wisdom tooth extraction History of left cataract extraction History of right cataract extraction S/P breast lumpectomy left with lymph node biopsy 2009 [place] History of shoulder surgery Left shoulder - frozen shoulder-pt denies surgical intervention History of laparoscopic cholecystectomy Family History Father , 89yo Lung cancer Mother , 91yo Respiratory infection Daughter No problems noted. Other No family history of adverse response to anesthesia Social History Smoking Status: Never smoker Second Hand Exposure: Yes (hx-both parents and 1st all smoked); Do You Dip or Chew Tobacco: No; Hx Alcohol Use: Yes Alcohol type: beer Hx Substance Use: No Preferred Language: Tamazight Communication Ability: Effective Visual Impairment: No Limitations Hearing Ability: Normal Online Program Coordinator Required: No Beliefs That Will Affect Care: None marital status: Current Living Situation: Spouse current occupational status: retired current occupation: Worked for a [employer] How many Children do You have: 1 Feels Safe at Home: Yes Diet: regular caffeine: Yes (2 cups/day) during the past year weight has: remained stable Assistive Devices: None Physical Exam Physical Exam: Gen.: No acute distress. Alert and oriented. HEENT: Anicteric sclera. Neck: No JVD. No bruits. Normal carotid upstrokes bilaterally. Cardiac: Regular and mildly tachycardic. Normal S1-S2. 1/6 systolic murmur. Pulmonary: Clear to auscultation bilaterally without wheezes, rales, or rhonchi. Abdomen: Soft, nontender, nondistended, with normoactive bowel sounds. No bruits noted. Extremities: 2+ radial pulses bilaterally. 2+ posterior tibialis pulses bilaterally. No edema or cyanosis. Psychiatric: Affect appears appropriate. Results & Data Vital Signs (Past 12 Hours) Vital Signs Temp Pulse Pulse Resp BP BP Pulse Ox 01/29/25 11:46 106/72 01/29/25 11:10 36.7 C 118 H 20 101/70 99 01/29/25 10:04 101/95 01/29/25 09:54 114 H 01/29/25 08:45 95/61 L 01/29/25 08:07 36.5 C 116 H 20 92/56 L 99 01/29/25 03:05 36.8 C 89 18 115/68 94 O2 Del Method 01/29/25 11:46 01/29/25 11:10 Room Air 01/29/25 10:04 01/29/25 09:54 01/29/25 08:45 01/29/25 08:07 Room Air 01/29/25 03:05 Room Air Laboratory Results Laboratory Results - last 24 hr 01/28/25 01/29/25 11:20 05:32 WBC 5.10 RBC 4.07 L Hgb 11.5 L Hct 35.5 L MCV 87.2 MCH 28.3 MCHC 32.4 RDW Std Deviation 43.7 RDW Coeff of Quintin 13.8 Plt Count 202 MPV 10.9 PT 10.8 INR 1.0 APTT 25 PTT Ratio 0.9 D-Dimer 450 Sodium 142 Potassium 4.6 Chloride 108 H Carbon Dioxide 30 Anion Gap 4 BUN 25 H Creatinine 1.49 H Est Cr Clr Drug Dosing 27.4 eGFR 33.58 BUN/Creatinine Ratio 16.8 Glucose 89 Calcium 9.3 Magnesium 2.1 Troponin I High Sens 6.8 TSH 2.491 Diagnostic Findings Labs reviewed and notable for mildly abnormal but stable renal function, normal potassium, normal TSH, normal transaminase levels, normal magnesium, mild but stable anemia, normal high-sensitivity troponin. Telemetry personally reviewed: Atrial flutter with occasional normal heart rate and occasional mild tachycardia. ECG personally reviewed 01/29/2025: Atrial flutter 104 bpm. Outpatient echo report reviewed from 12/10/2024: Normal LV systolic function. EF 55-60%. Normal wall motion. Appropriately functioning bioprosthetic aortic valve. History and physical report reviewed. Outpatient cardiology note reviewed from 12/30/2024 Medications Administered Current Inpatient Medications Acetaminophen (Acetaminophen 325 Mg Tab) 650 mg PO Q4H PRN PRN Reason: Pain or Fever Stop: 02/27/25 17:03 Al Hydrox/Mg Hydrox/Simethicone (Aluminum/Magnesium Susp 30 Ml Udc) 15 ml PO Q4H PRN PRN Reason: Dyspepsia Stop: 02/27/25 17:03 Apixaban (Apixaban 5 Mg Tablet) 5 mg PO BID RASHARD Stop: 02/27/25 20:59 Last Admin: 01/29/25 08:34 Dose: 5 mg Atorvastatin Calcium (Atorvastatin 40 Mg Tab) 40 mg PO QAM RASHARD Stop: 02/28/25 08:59 Last Admin: 01/29/25 08:35 Dose: 40 mg Duloxetine HCl (Duloxetine Hcl 30 Mg Cap) 90 mg PO HS RASHARD Stop: 02/27/25 20:59 Last Admin: 01/28/25 20:32 Dose: 90 mg Gabapentin (Gabapentin 400 Mg Cap) 800 mg PO BID RASHARD Stop: 02/27/25 20:59 Last Admin: 01/29/25 08:34 Dose: 800 mg Magnesium Hydroxide (Magnesium Hydroxide Susp 30 Ml Udc) 30 ml PO Q12H PRN PRN Reason: Constipation Stop: 02/27/25 17:03 Metoprolol Tartrate (Metoprolol Tartrate 25 Mg Tab) 25 mg PO BID [facility] Stop: 02/28/25 20:59 Ondansetron HCl (Ondansetron Inj 2 Mg/Ml 2 Ml Vial) 4 mg IV Q6H PRN PRN Reason: Nausea Stop: 02/27/25 17:03 Pantoprazole Sodium (Pantoprazole 40 Mg Tab) 40 mg PO BID [facility] Stop: 02/27/25 20:59 Last Admin: 01/29/25 08:34 Dose: 40 mg Polyethylene Glycol (Polyethylene (Miralax) 17 Gm Pack) 17 gm PO DAILY PRN PRN Reason: Constipation Stop: 02/27/25 17:03 PG Care Time/CCT Total # of Minutes Spent Total Time Spent with Patient: Total time spent is greater than 50% in coordination of care (as documented) at patient's floor/unit and/or counseling patient: Coding Level of Care Code 45574 INT INP/OBS CARE 3/75MIN Diagnoses Atrial flutter with rapid ventricular response I48.92 Hx of replacement of aortic valve Z95.2 Benign essential hypertension I10 Anticoagulant long-term use Z79.01
[2025-01-29] MEDS: ACETAMINOPHEN 325 MG TAB PO PRN (12:47)
--- NOTE | 2025-01-29 14:05 | XCELERA ---
[id number]
[2025-01-29] MEDS: METOPROLOL TARTRATE 25 MG TAB PO SCH (20:27)
--- NOTE | 2025-01-30 05:47 | Electrocardiogram Report ---
Test Reason : Blood Pressure : */* mmHG Vent. Rate : 104 BPM Atrial Rate : * BPM P-R Int : * ms QRS Dur : 80 ms QT Int : 346 ms P-R-T Axes : * -34 73 degrees QTcB Int : 454 ms Poor data quality, interpretation may be adversely affected Atrial flutter / Atrial fibrillation with rapid ventricular response Left axis deviation Abnormal ECG When compared with ECG of 28-Jan-2025 14:13, No significant change was found Confirmed by Kemal Duran ([id number]) on 01/30/2025 5:47:15 AM Referred By: REFERRED SELF Confirmed By: Kemal Duran
--- NOTE | 2025-01-30 08:08 | Discharge Summary ---
Discharge Summary Date of Service January 30, 2025 Principal Dx & Hospital Course #1 = Principal Diagnosis (1) Atrial flutter with rapid ventricular response: 89-year-old female with a history of bioprosthetic valve who presented with episodes of lightheadedness/dizziness for several weeks and increased fatigue and who was found to have atrial flutter with RVR on admission. To do as outpatient: 1. Continue metoprolol tartrate 37.5 mg twice daily. If doing well and stable on this dose can consolidate to succinate formulation as outpatient 2. Continue Eliquis twice daily for A-fib stroke prevention. 3. Routine follow-up with PCP/cardiology 4. Repeat BMP, follow-up on creatinine to ensure normalization. If rises above 1.5 will need Eliquis dose adjustment Atrial flutter with RVR Initially treated with metoprolol 50 mg tartrate twice daily, improved rate controlled but borderline hypotensive. This was dose reduced to 25, and then slightly uptitrated to 37.5 mg. Heart rate 89 on reassessment and tolerating well. Risks/benefits of stroke prevention with Eliquis were discussed during admission. Patient agreeable to stroke prophylaxis with Eliquis. 5 mg twice daily dose started. If creatinine rises greater than 1.5 then dose reduced to 2.5 mg twice daily Improved but not yet with adequate rate control, rates [id number] in the morning. Morning dose was held for hypotension Limited echo with no evidence of rate related myopathy, EF 55-60%. No regional wall motion abnormalities CKD 3B Baseline creatinine around 1.21.3 Elevated at 1.49 on admission and slightly volume contracted at that time 500 cc maintenance supplement given, trended Monitor progression as outpatient. If creatinine rises above 1.5 would need Eliquis dose reduction at that time Baseline creatinine approximately 1.21.36 Creatinine downtrending but not completely normalized at time of discharge, 1.43-day of discharge. Repeat BMP within 1 week by PCP to ensure stability/normalization Asthma No acute exacerbation during admission GERD: PPI continued DVT prophylaxis: Apixaban continued Diet: Heart healthy Disposition: PCU CODE STATUS: Full code (2) Chronic kidney disease (CKD): (3) Benign essential hypertension: (4) Hx of replacement of aortic valve: (5) Cough variant asthma: Admission HPI Per Admitting Provider 89 y/o woman who Has a history of bioprosthetic aortic valve replacement in 2012, very healthy and lives independently who was sent in from her primary care doctor's office with tachycardia. She notices that for up to the past month she has been more lightheaded when standing up. Generally she has not felt very well for the past month. She has not noticed any palpitations or tachycardia herself, she has not had any chest pain, she has not had any dyspnea but does have a chronic dry cough for many years which no one has been able to explain. she usually takes low-dose metoprolol and an aspirin and follows with Dr. Hilario. She had an echocardiogram November of this year her EF was 55-60% and the AVR was functionally very well with a normal gradient she had 1 episode of transient atrial fibrillation following a surgery in the past no history of sleep apnea or snoring, normal TSH recently Lives with , mild cognitive impairment, does not use a walker, lives in a skilled nursing community no stairs to enter stays on 1 level, no issues with bleeding in the past no melena or bright red blood per rectum ED evaluation notable for her atrial flutter, she has been tachycardic but rates improved after metoprolol 5 mg IV x 2 doses Discharge Exam General: A&Ox3. NAD. Cooperative. HEENT: Atraumatic, normocephalic. Vision and hearing grossly intact Pulm: CTAB A&P. -wheezes, -rales, -rhonchi. Symmetrical chest rise. No increase in work of breathing. No respiratory distress. Cardiac: Irregularly irregular. Rate 80s at time of discharge assessment no JVD. Extremities: Warm, dry. Without edema Discharge Plan Discharge Items Patient Disposition: Home - Self-Care Reason For Visit: RAPID AFLUTTER Discharge Diagnosis: Atrial flutter Activity: Resume your previous activity Non-emergency contact: Primary Care Provider and Flanging Operator Call non-emergency contact if: you have any medication questions, your symptoms worsen and your pain is not controlled Follow-up/Referrals: Kemal Duran MD [Physician] - 02/05/25 10:00 am (Hospital follow up on February 05 at 10 am with Rick Bonilla PA-C.) Baldomero Holder MD [Primary Care Provider] - Diet: Regular, Carb Consistent or DM2 and Heart Healthy Addtl Attending Provider Instructions: You were seen in the hospital for atrial flutter with a fast heart rate. An ultrasound of your heart showed normal pumping function of your heart. You are treated with an increased dose of metoprolol which can help slow down heart rate. You are initially treated with 50 mg twice daily with reasonable heart rate control your blood pressure was slightly low. Your dose was adjusted during admission in your discharge on metoprolol 37.5 mg twice daily as below. You have been discharged on metoprolol tartrate. Please take metoprolol tartrate 37.5 mg by mouth twice daily. This is a heart rate controlling medication however it will also lower your blood pressure. If you have any symptoms of low blood pressure including lightheadedness, dizziness, feeling of nearly passing out or other new or concerning symptoms please contact your cardiology office or call 911 for ER evaluation if very concerned. This dose replaces your prior home dose of 12.5 mg in the morning. Once a stable dose is established and you are doing well your carton stapler or primary care doctor can switch the twice daily dosing to a once daily long-acting version. Atrial fibrillation and flutter place you at increased risk of strokes. You have been started on apixaban (Eliquis) 5 mg twice daily. This is a blood thinner that helps prevent strokes. There is a risk of bleeding on this medication. If you notice any signs or symptoms of bleed including lightheadedness, dizziness, bloody or black bowel movements, nosebleeds, or other concerning symptoms please seek medical reevaluation. Small cuts will bleed more while on this medication. For a small cut apply firm direct pressure for 10 minutes before checking the wound. For any cuts that do not stop bleeding or for moderate or larger wounds you will need to seek medical attention You should have your kidney function checked in 1 week, this was improving and nearly but not completely back to your normal baseline at time of discharge. If your creatinine is greater than 1.5 as an outpatient you will need a dose adjust ment to your Eliquis If you develop any new or worsening symptoms including fever, chills, sweats, chest pain, chest pressure, difficulty breathing, uncontrolled nausea/vomiting, rash, wheezing, passing out or nearly passing out, bleeding, black/bloody bowel movements, or other new or concerning symptoms please call your primary care physician, or call 911 for re-evaluation in the emergency department if you are very concerned. Pending Studies at Discharge: No Stand-Alone Forms: My [facility], Smoking Cessation Medications and DC Order Prescriptions: New Eliquis 5 mg Tablet 5 mg PO BID Qty: 60 0RF metoprolol tartrate 25 mg Tablet 37.5 mg PO BID 30 Days Qty: 90 0RF Continued pantoprazole 40 mg tablet,delayed release (DR/EC) 40 mg PO BID Qty: 30 6RF cholecalciferol (vitamin D3) 25 mcg (1,000 unit) capsule 1,000 units PO QAM gabapentin 400 mg capsule 800 mg PO BID (DME) Spacer for Inhaler Misc See Rx Instructions .Route Qty: 1 0RF Rx Instructions: As directed atorvastatin 40 mg tablet 40 mg PO QAM Qty: 30 cyanocobalamin (vitamin B-12) [Vitamin B-12] 500 mcg Tablet 500 mcg PO QAM Eye Multivitamin 2,148 mcg-113 mg-45 mg-17.4mg Tablet 1 tab PO QAM Rx Instructions: administer with AM and PM meals aspirin 81 mg Tablet,Delayed Release (Dr/Ec) 81 mg PO QAM duloxetine 30 mg capsule,delayed release(DR/EC) 30 mg PO HS Rx Instructions: Take w/ 60mg capsule to equal 90mg at bedtime duloxetine 60 mg capsule,delayed release(DR/EC) 60 mg PO HS Rx Instructions: 60 MG ORALLY AT BEDTIME FOR 90 DAYS Discontinued metoprolol succinate 25 mg tablet extended release 24 hr 12.5 mg PO QAM Qty: 90 3RF Discharge Orders: Discharge Order (Routine); Ordered 01/30/25 Ordered By: Patrick Garnett Admission Data Admit Date/Time: 01/28/25 17:04 Attending Provider: Patrick Garnett Admit Provider: Jessenia Leigh Primary Care Provider: Baldomero Holder Other Providers: Jessenia Leigh; Kemal Duran Other Interventions: Discharge Summary Assessment (RN) Last Done: 01/30/25 09:31 Hospital Stay Data Consultations 01/28/25 15:38 ED Decision to Admit Stat 01/28/25 17:04 Consult Cardiology Routine Pending Results Patient Have Any Pending Studies at Discharge: No Discharge Instructions Given to Patient (Per Discharging Provider) You were seen in the hospital for atrial flutter with a fast heart rate. An ultrasound of your heart showed normal pumping function of your heart. You are treated with an increased dose of metoprolol which can help slow down heart rate. You are initially treated with 50 mg twice daily with reasonable heart rate control your blood pressure was slightly low. Your dose was adjusted during admission in your discharge on metoprolol 37.5 mg twice daily as below. You have been discharged on metoprolol tartrate. Please take metoprolol tartrate 37.5 mg by mouth twice daily. This is a heart rate controlling medication however it will also lower your blood pressure. If you have any symptoms of low blood pressure including lightheadedness, dizziness, feeling of nearly passing out or other new or concerning symptoms please contact your cardiology office or call 911 for ER evaluation if very concerned. This dose replaces your prior home dose of 12.5 mg in the morning. Once a stable dose is established and you are doing well your carton stapler or primary care doctor can switch the twice daily dosing to a once daily long-acting version. Atrial fibrillation and flutter place you at increased risk of strokes. You have been started on apixaban (Eliquis) 5 mg twice daily. This is a blood thinner that helps prevent strokes. There is a risk of bleeding on this medication. If you notice any signs or symptoms of bleed including lightheadedness, dizziness, bloody or black bowel movements, nosebleeds, or other concerning symptoms please seek medical reevaluation. Small cuts will bleed more while on this medication. For a small cut apply firm direct pressure for 10 minutes before checking the wound. For any cuts that do not stop bleeding or for moderate or larger wounds you will need to seek medical attention You should have your kidney function checked in 1 week, this was improving and nearly but not completely back to your normal baseline at time of discharge. If your creatinine is greater than 1.5 as an outpatient you will need a dose a djustment to your Eliquis If you develop any new or worsening symptoms including fever, chills, sweats, chest pain, chest pressure, difficulty breathing, uncontrolled nausea/vomiting, rash, wheezing, passing out or nearly passing out, bleeding, black/bloody bowel movements, or other new or concerning symptoms please call your primary care physician, or call 911 for re-evaluation in the emergency department if you are very concerned. Total Time Total Time Spent Total Time Spent (In Minutes): Time spend day of discharge 35 minutes including direct patient care, documentation, review of labs and images, and coordination of care. Coding Level of Care Code 50505 INP/OBS DISCH >30 MIN Diagnoses Atrial flutter with rapid ventricular response I48.92 Chronic kidney disease (CKD) N18.9 Benign essential hypertension I10 Hx of replacement of aortic valve Z95.2 Cough variant asthma J45.991
[2025-01-30 08:11] VITALS: RESP 20; TEMP 98.2; O2SAT 92
[2025-01-30 08:21] LABS: BUN Creatinine Ratio 20.3 (10-20); Calcium 9.7 mg/dl (8.6-10.3); Creatinine Clr Calc Pharmacy 28.6 ml/min; Potassium 4.5 mmol/L (3.5-5.1)
[2025-01-30] MEDS: METOPROLOL TARTRATE 25 MG TAB PO SCH (08:30)
[2025-01-30 09:33] VITALS: BP 101/70; PULSE 89
--- NOTE | 2025-01-30 21:22 | Electrocardiogram Report ---
Test Reason : Blood Pressure : */* mmHG Vent. Rate : 114 BPM Atrial Rate : 120 BPM P-R Int : 112 ms QRS Dur : 76 ms QT Int : 338 ms P-R-T Axes : * -35 65 degrees QTcB Int : 465 ms Atrial flutter Left axis deviation Abnormal ECG When compared with ECG of 29-Jan-2025 06:08, No significant change Confirmed by Kemal Duran ([id number]) on 01/30/2025 9:22:03 PM Referred By: REFERRED SELF Confirmed By: Kemal Duran
== END 2025-01-30 10:19 | disposition home or self-care (01) | DRG 310 ==
LOC: ED 11:08 → SUATTDRO 17:04 → 2S 17:04